=== PATIENT | female | born 1940 | race Caucasian/White ===

== ENCOUNTER 2017-06-07 20:18 | Inpatient (IN) | payer OTHER, MEDICARE ==
[~2017-06-07] VITALS: Ht 162.6 cm; Wt 47.7 kg
--- NOTE | 2017-06-07 20:46 | ED DYSPNEA/ASTHMA COMPLAINT ---
History of Present Illness General Chief Complaint: Chest Pain Stated Complaint: CHEST PAIN, SOB, FEET SWELLING PER PT Source: patient, family Exam Limitations: no limitations Vital Signs & Intake/Output Vital Signs & Intake/Output Vital Signs Date Time Temp Pulse Resp B/P B/P Pulse O2 O2 Flow FiO2 Mean Ox Delivery Rate 06/079 97.9 81 20 154/94 92 Nasal 3.0L Cannula 06/078 97.5 99 18 150/80 93 Nasal 3.0L Cannula 06/07 2100 88 Nasal 4.0L Cannula 06/07 2032 93.1 85 18 152/95 82 Room Air ED Intake and Output 06/08 0000 06/07 1200 Intake Total 1300 Output Total Balance 1300 Intake, IV 1300 Patient 99 lb 0.01 oz Weight Weight Reported by Patient Measurement Method Allergies Coded Allergies: Cephalosporins (Severe, HIVES, SWELLINGS ALL OVER BODY 06/07/17) acetaminophen (From PERCOCET) (Severe, HIVES, SWELLINGS ALL OVER BODY 06/07/17) aspirin (From PERCODAN) (Severe, HIVES, SWELLINGS ALL OVER BODY 06/07/17) ciprofloxacin (From CIPRO) (Severe, HIVES, SWELLINGS ALL OVER BODY 06/07/17) meperidine (From DEMEROL) (Severe, HIVES, SWELLING ALL OVER BODY 06/07/17) oxycodone (Severe, HIVES, SWELLINGS ALL OVER 06/07/17) Triage Note: TRIAGE: PATIENT TO ER FROM HOME [id number], STATES "CAN'T BREATHE RIGHT, SO WEAK FEEL LIKE I'M GOING TO DROP. DRY COUGH, NO CP RIGHT NOW. I WANT TO BE AT [facility]." PATIENT FAMILY REPORTS X 1 MONTH HAVING POOR APPETITE, CAN'T GO UP MORE THAN 2-3 STAIRS. PATIENT REPORTS "FEEL LIKE I'M DRUNK BUT I DON'T DRINK." ALERT AND ORIENTED X3. INC WOB NOTED, SKIN WEAVER/ PALE. BILATERAL LOWER EXT PITTING EDEMA NOTED. EKG OBTAINED. Triage Nurses Notes Reviewed? yes HPI: Patient presents to the hospital increased breath and dyspnea on exertion worsening over the past month. Patient has seen a biological scientist and is beginning to get a workup for this and she is scheduled to see a cotton weigher for the first time on Wednesday. Patient is an active smoker however she is attempting to quit. Patient denies any chest pain or chest tightness. She has a dry nonproductive cough. There are no fevers or chills. Patient chronically sleeps on 2 pillows. Patient states she gets short of breath walking mcc across the room and she has to stop to catch her breath. Past History Travel History Traveled to [place] past 21 day No Medical History Any Pertinent Medical History? 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 No Review of Systems Review of Systems Constitutional: Reports: no symptoms. EENTM: Reports: no symptoms. Respiratory: Reports: see HPI, cough, short of breath, wheezing. Cardiovascular: Reports: no symptoms. GI: Reports: no symptoms. Genitourinary: Reports: no symptoms. Musculoskeletal: Reports: no symptoms. Skin: Reports: no symptoms. Neurological/Psychological: Reports: no symptoms. Hematologic/Endocrine: Reports: no symptoms. Immunologic/Allergic: Reports: no symptoms. All Other Systems: Reviewed and Negative Physical Exam Physical Exam General Appearance: well developed/nourished, alert, awake, anxious, moderate distress Head: atraumatic, normal appearance Eyes: Bilateral: PERRL, EOMI. Ears, Nose, Throat: normal pharynx, normal ENT inspection, hearing grossly normal Neck: normal inspection, supple, full range of motion Respiratory: decreased breath sounds, rhonchi, wheezing, respiratory distress Cardiovascular: normal peripheral pulses, tachycardia Gastrointestinal: normal bowel sounds, soft, non-tender, no organomegaly Extremities: normal inspection, normal capillary refill, normal range of motion, no edema Neurologic/Psych: no motor/sensory deficits, awake, alert, oriented x 3, normal mood/affect Skin: intact, normal color, warm/dry Lymphatic: no anterior cervical alona Core Measures ACS in differential dx? Yes CVA/TIA Diagnosis No Sepsis Present: No Sepsis Focused Exam Completed? No Progress Differential Diagnosis: asthma, AMI, bronchitis, CHF, COPD, pericarditis, pulmonary embolism, pneumonia, pneumothorax Plan of Care: Orders Procedure Date/time Status Heart Healthy Diet 06/08 B Active Add-on Test (ER Only) 06/08 0004 Active ARTERIAL BLOOD GAS (GEN) 06/08 0003 Active LACTIC ACID 06/07 2344 Active ED Holding Orders 06/07 2334 Active Admit to inpatient 06/07 2334 Active Vital Signs 06/07 2334 Active Code Status 06/07 2334 Active GAMMA GLUTAMYL TRANSFERASE 06/07 2047 Active BLOOD CULTURE 06/07 2044 Active URINALYSIS 06/07 2044 Active LACTIC ACID 06/07 2044 Complete Telemetry/Belting Cutter 06/07 2039 Active TROPONIN LEVEL 06/07 2039 Active PROTHROMBIN TIME 06/07 2039 Complete MAGNESIUM 06/07 2039 Active COMPREHENSIVE METABOLIC PANEL 06/07 2039 Active CBC WITHOUT DIFFERENTIAL 06/07 2039 Complete B-TYPE NATRIURETIC PEP (BNP) 06/07 2039 Active EKG 06/07 2020 Active Laboratory Tests 06/08/17 0015: Lactic Acid Pending 06/07/172047: Lactic Acid 6.6 H 06/07/172047: Anion Gap 19 H, Estimated GFR 48 L, BUN/Creatinine Ratio 21.8, Glucose 121 H, Calcium 8.9, Magnesium 1.7, Total Bilirubin 0.7, GGT Pending, AST 32, ALT 34, Alkaline Phosphatase 137 H, Troponin I 0.07, [id number] Pept 05967 H, Total Protein 8.3 H, Albumin 3.7, Globulin 4.6 H, Albumin/Globulin Ratio 0.8 L, PT 11.6, INR 1.11, CBC w Diff NO MAN DIFF REQ, RBC 5.13, MCV 91.9, MCH 30.2, RDW 15.9 H, MPV 7.2 L, Gran % 88.3 H, Lymphocytes % 7.2 L, Monocytes % 3.9, Eosinophils % 0.3, Basophils % 0.3, Absolute Granulocytes 9.0 H, Absolute Lymphocytes 0.7 L, Absolute Monocytes 0.4, Absolute Eosinophils 0, Absolute Basophils 0, PUBS MCHC 32.8 L Microbiology 06/07 2209 BLOOD: Blood Culture - RECD 06/07 2044 BLOOD: Blood Culture - ORD Diagnostic Imaging: Viewed by Me: Radiology Read. Discussed w/RAD: Radiology Read. Radiology Impression: PATIENT: ISABEL SILVA RECORD NO: [id number] PRESENT AGE: 77 PATIENT ACCOUNT NO: [id number] : 38 LOCATION: [facility] ORDERING PHYSICIAN: Marquez Moreau MD SERVICE DATE: 06/07/17 EXAM TYPE: CAT - CT CHEST W IV CONTRAST EXAMINATION: CT CHEST WITH CONTRAST CLINICAL INFORMATION: Shortness of breath. Follow-up abnormal exam. COMPARISON: Same day chest radiographs. TECHNIQUE: Contiguous axial thin section helical images of the chest were performed following the administration of 95 mL of intravenous Optiray 320. The data set was reformatted in the coronal and sagittal planes and reviewed on an independent workstation. DLP: 166 mGy-cm. FINDINGS: The heart is of normal size. There is no pericardial effusion. There is neither mediastinal, hilar nor axillary lymphadenopathy. There are no chest wall masses. There are moderate bilateral pleural effusions. There is extensive emphysema. There is extensive interlobular septal thickening, particularly within the lower lobes. No discrete mass lesions are demonstrable. The visualized upper abdomen demonstrates that the liver is of normal size and attenuation without focal lesions. Normal adrenal glands are identified. Bone windows: Neither sclerotic nor lytic bone lesions are identified. IMPRESSION: Moderate bilateral pleural effusions. Extensive emphysema. Nonspecific diffuse interlobular septal thickening. DICTATED BY: Robin Brunner MD DATE/TIME DICTATED:06/07/172246 SECOND BUTLER:MARLA DATE/TIME TRANSCRIBED:06/07/172246 CONFIDENTIAL, DO NOT COPY WITHOUT APPROPRIATE AUTHORIZATION. <Electronically signed in Other Vendor System> SIGNED BY: Robin Brunner MD 06/07/172256 CXR Impression: PATIENT: ISABEL SILVA PRESENT AGE: 77 PATIENT ACCOUNT NO: [id number] : 38 LOCATION: [facility] ORDERING PHYSICIAN: Marquez Moreau MD SERVICE DATE: 06/07/17 EXAM TYPE: RAD - XRY-CHEST XRAY, TWO VIEWS EXAMINATION: XR CHEST CLINICAL INFORMATION: Shortness of breath. Hypothermia. COMPARISON: None TECHNIQUE: 2 views of the chest were obtained. FINDINGS: There is coarse extensive interstitial lung markings in both lungs that are likely chronic. There is a focus of pleural density and parenchymal linear scarring at the right upper lobe that could be a mass. There is blunting of both costophrenic angles right greater on left due to bilateral pleural effusions. The heart size is normal. No significant central pulmonary vascular congestion. There are calcifications of aortic arch. IMPRESSION: Chronic interstitial lung disease. Question of right upper lobe mass. Bilateral pleural effusions right greater than left. Consider CT chest with contrast for follow- up. DICTATED BY: Juanito Castro MD DATE/TIME DICTATED:06/07/172105 SECOND BUTLER:MARLA DATE/TIME TRANSCRIBED:06/07/172105 CONFIDENTIAL, DO NOT COPY WITHOUT APPROPRIATE AUTHORIZATION. <Electronically signed in Other Vendor System> SIGNED BY: Juanito Castro MD 06/07/172110 Initial ED EKG: S TACH, NSSTT CHANGES, LATE TRANSITION Prior EKG: unchanged Rhythm Strip: sinus tachycardia Departure Departure Disposition: STILL A PATIENT Condition: Guarded Clinical Impression Primary Impression: COPD exacerbation Secondary Impressions: Fluid overload, Lactic acidosis Departure Forms: Customer Survey General Discharge Information Admission Note Spoke With: Oseas Temple MD Documentation of Exam: Documentation of any treatments & extenuating circumstances including Concerns Regarding Discharge (functional status, medication knowledge or non-compliance, living conditions, etc.) that warrant an admission rather than observation: [ TELE MONITORING, SERIAL ENZYMES, CARDIOLOGY CONSULTATION, PULM CONSULTATION, IV ABX, IV STEROIDS] Critical Care Note Critical Care Note Critical Care Time: mins: (120 MIN)
[2017-06-07 21:02] LABS: ABSOLUTE BASOPHIL COUNT 0 /CUMM (0.0-0.2); ABSOLUTE EOSINOPHIL COUNT 0 /CUMM (0.0-0.7); ABSOLUTE LYMPH COUNT 0.7 /CUMM (1.2-3.4); ABSOLUTE MONOCYTE COUNT 0.4 /CUMM (0.10-0.60); BASOPHIL % 0.3 % (0.0-2.0); EOSINOPHIL % 0.3 % (0-5); GRANULOCYTE % 88.3 % (42.2-75.2); HEMATOCRIT 47.2 % (37-47); MEAN CORPUSCULAR HGB 30.2 PG (27.0-31.0); MEAN CORPUSCULAR HGB CONC 32.8 G/DL (33.0-37.0); MEAN CORPUSCULAR VOLUME 91.9 FL (81.0-99.0); MEAN PLATELET VOLUME 7.2 FL (7.4-10.4); PLATELET COUNT 433 /CUMM (130-400); RBC DISTRIBUTION WIDTH 15.9 % (11.5-14.5); RED BLOOD CELL CT 5.13 /CUMM (4.20-5.40); WHITE BLOOD CELL COUNT 10.2 /CUMM (4.8-10.8)
[2017-06-07 21:03] LABS: PT 11.6 SEC (9.4-12.5)
--- NOTE | 2017-06-07 21:11 | RADIOLOGY REPORT ---
EXAMINATION: XR CHEST CLINICAL INFORMATION: Shortness of breath. Hypothermia. COMPARISON: None TECHNIQUE: 2 views of the chest were obtained. FINDINGS: There is coarse extensive interstitial lung markings in both lungs that are likely chronic. There is a focus of pleural density and parenchymal linear scarring at the right upper lobe that could be a mass. There is blunting of both costophrenic angles right greater on left due to bilateral pleural effusions. The heart size is normal. No significant central pulmonary vascular congestion. There are calcifications of aortic arch. IMPRESSION: Chronic interstitial lung disease. Question of right upper lobe mass. Bilateral pleural effusions right greater than left. Consider CT chest with contrast for follow-up.
--- NOTE | 2017-06-07 22:57 | CT SCAN REPORT ---
EXAMINATION: CT CHEST WITH CONTRAST CLINICAL INFORMATION: Shortness of breath. Follow-up abnormal exam. COMPARISON: Same day chest radiographs. TECHNIQUE: Contiguous axial thin section helical images of the chest were performed following the administration of 95 mL of intravenous Optiray 320. The data set was reformatted in the coronal and sagittal planes and reviewed on an independent workstation. DLP: 166 mGy-cm. FINDINGS: The heart is of normal size. There is no pericardial effusion. There is neither mediastinal, hilar nor axillary lymphadenopathy. There are no chest wall masses. There are moderate bilateral pleural effusions. There is extensive emphysema. There is extensive interlobular septal thickening, particularly within the lower lobes. No discrete mass lesions are demonstrable. The visualized upper abdomen demonstrates that the liver is of normal size and attenuation without focal lesions. Normal adrenal glands are identified. Bone windows: Neither sclerotic nor lytic bone lesions are identified. IMPRESSION: Moderate bilateral pleural effusions. Extensive emphysema. Nonspecific diffuse interlobular septal thickening.
--- NOTE | 2017-06-07 23:47 | History & Physical ---
Ariela Pires MD 06/07/17 0826: General Information and HPI MD Statement: I have seen and personally examined MARY SILVA and documented this H&P. The patient is a 77 year old F who presented with a patient stated chief complaint of [shortness breath]. Source of Information: patient, family Exam Limitations: poor historian History of Present Illness: Patient is a 77-year-old female with approximately a 64 pack year smoking history who recently quits smoking approximately 3 weeks prior to this admission with past medical history of CVA in 2002, hypertension, urinary incontinence, anxiety, recently seen by a meat passer at [facility] for possible heart failure and currently treated for presumed COPD recently placed on inhalers and is scheduled to see a parts advisor this week. Patient presents with shortness of breath which she states has worsened over the past few months. Patient states that around she had an acute episode of shortness of breath for which she did not seek medical attention. States that 2 weeks before she had another acute episode of shortness of breath lasting approximately 15 minutes while placing perez around the veiling of the stairs. Patient states that at that time she had to sit down to catch her breath. Patient states that the shortness of breath has gotten worse over the last 1 month where she is unable to walk more than 2-3 stairs. Patient endorses intermittent chest pain with shortness of breath. Endorses dizziness, palpitations, spinning of the room. Patient and her son state that they noticed her feet were swollen today and had a black/blue discoloration which improved after IV fluids in the ED. Patient states that she has also been feeling weak over the past few months. Endorses orthopnea. Patient states that she is not longer able to drive or go shopping due to the shortness of breath and weakness. Review of systems: Patient endorses some vague abdominal pain, denies nausea/ vomiting/constipation/diarrhea, endorses anorexia. Past medical history: As above, lactose intolerance Past surgical history: hysterectomy Social history: Smoking since the age of 13 approximately 1 pack per day, quit smoking 2-3 weeks prior to this admission, denies alcohol or illicit drug use, lives with son and [id number]. Family history: Father at the age of 87 after suffering [place], mother at the age of 55 due to stroke, daughter recently from Fanconi syndrome Allergies: Patient has allergies to cephalosporin, acetaminophen, oxycodone, aspirin, ciprofloxacin, Demerol. She gets hives with all of these medications. Medications: Patient is currently on lisinopril 30 mg, Lipitor 10 mg, Macrobid 180 mg, Myrbetriq 50 mg, Premarin 0.3 mg, vitamin D and E supplements On admission: Vitals: MAXIMUM TEMPERATURE of 97.9 initially 93.1 on arrival, heart rate: 81-99 , respiration rate: 18-20, blood pressure: 154/94, pulse ox initially 82% on room air went up to 92% on 3 L Allergies/Medications Allergies: Coded Allergies: Cephalosporins (Severe, HIVES, SWELLINGS ALL OVER BODY 06/07/17) acetaminophen (From PERCOCET) (Severe, HIVES, SWELLINGS ALL OVER BODY 06/07/17) aspirin (From PERCODAN) (Severe, HIVES, SWELLINGS ALL OVER BODY 06/07/17) ciprofloxacin (From CIPRO) (Severe, HIVES, SWELLINGS ALL OVER BODY 06/07/17) meperidine (From DEMEROL) (Severe, HIVES, SWELLING ALL OVER BODY 06/07/17) oxycodone (Severe, HIVES, SWELLINGS ALL OVER 06/07/17) Past History Travel History Traveled to [place] past 21 day No Medical History Neurological: CVA EENT: NONE Cardiovascular: hypertension Respiratory: NONE Gastrointestinal: NONE Hepatic: NONE Renal: urinary incontinence Musculoskeletal: NONE Psychiatric: anxiety Endocrine: NONE Blood Disorders: NONE Cancer(s): NONE HUMAN RESOURCES CONSULTANT/Reproductive: NONE Surgical History Surgical History: non-contributory Past Family/Social History Psychosocial History ETOH Use: denies use Illicit Drug Use: denies illicit drug use Review of Systems Review of Systems Constitutional: Reports: see HPI, weakness. Cardiovascular: Reports: see HPI, chest pain. Respiratory: Reports: see HPI, cough, orthopnea, short of breath. GI: Reports: no symptoms. Genitourinary: Reports: see HPI. Musculoskeletal: Reports: no symptoms. Skin: Reports: no symptoms. Exam & Diagnostic Data Last 24 Hrs of Vital Signs/I&O Vital Signs Date Time Temp Pulse Resp B/P B/P Pulse O2 O2 Flow FiO2 Mean Ox Delivery Rate 06/08 0500 97.6 80 18 158/86 96 Nasal 3.0L Cannula 06/08 0244 97.9 82 22 155/85 95 Nasal 3.0L Cannula 06/07 2329 97.9 81 20 154/94 92 Nasal 3.0L Cannula 06/078 97.5 99 18 150/80 93 Nasal 3.0L Cannula 06/07 2100 88 Nasal 4.0L Cannula 06/07 2032 93.1 85 18 152/95 82 Room Air Intake & Output 06/08 0800 06/08 0000 06/07 1600 Intake Total 250 1300 Output Total Balance 250 1300 Intake, IV 250 1300 Patient 99 lb 0.01 oz Weight Weight Reported by Patient Measurement Method Physical Exam General Appearance Alert, Oriented X3, Cooperative, No Acute Distress Skin No Rashes Skin Temp/Moisture Exam: Warm/Dry HEENT Atraumatic, PERRLA, EOMI, Mucous Membr. moist/pink Cardiovascular Regular Rate, Normal S1, Normal S2, No Murmurs Lungs left sided basilar crackles, right base decreased breath sounds, remainder clear to auscultation Abdomen Normal Bowel Sounds, Soft, No Tenderness Extremities No Clubbing, No Cyanosis, Normal Pulses, No Tenderness/Swelling, 2+ pitting edema bilaterally up to ankles Last 24 Hrs of Labs/Obdulio: Laboratory Tests 06/08/17 0445: Troponin I 0.06 06/08/17 0240: Urinalysis LIGHT H, Urine Color YEL, Urine Clarity HAZY H, Urine pH 6.0, Ur Specific [place] 1.020, Urine Protein 100 H, Urine Ketones NEG, Urine Nitrite NEG, Urine Bilirubin NEG, Urine Urobilinogen 1.0, Ur Leukocyte Esterase NEG, Ur Microscopic SEDIMENT EXAMINED, Urine RBC 5-10 H, Urine WBC 1-3 H, Ur Epithelial Cells PACKD H, Urine Bacteria FEW H, Urine Mucus FEW, Urine Hemoglobin SMALL H, Urine Glucose NEG 06/08/17 0219: Urine Color Cancelled, Urine Clarity Cancelled, Urine pH Cancelled, Ur Specific [place] Cancelled, Urine Protein Cancelled, Urine Ketones Cancelled, Urine Nitrite Cancelled, Urine Bilirubin Cancelled, Urine Urobilinogen Cancelled, Ur Leukocyte Esterase Cancelled, Ur Microscopic Cancelled, Urine Hemoglobin Cancelled, Urine Glucose Cancelled 06/08/17 0015: Lactic Acid 3.2 H 06/07/172047: Lactic Acid 6.6 H 06/07/172047: Anion Gap 19 H, Estimated GFR 48 L, BUN/Creatinine Ratio 21.8, Glucose 121 H, Calcium 8.9, Magnesium 1.7, Total Bilirubin 0.7, GGT 61 H, AST 32, ALT 34, Alkaline Phosphatase 137 H, Troponin I 0.07, Olq-E-Enwaqzxmiof Pept 61025 H, Total Protein 8.3 H, Albumin 3.7, Globulin 4.6 H, Albumin/Globulin Ratio 0.8 L, PT 11.6, INR 1.11, CBC w Diff NO MAN DIFF REQ, RBC 5.13, MCV 91.9, MCH 30.2, RDW 15.9 H, MPV 7.2 L, Gran % 88.3 H, Lymphocytes % 7.2 L, Monocytes % 3.9, Eosinophils % 0.3, Basophils % 0.3, Absolute Granulocytes 9.0 H, Absolute Lymphocytes 0.7 L, Absolute Monocytes 0.4, Absolute Eosinophils 0, Absolute Basophils 0, PUBS MCHC 32.8 L Microbiology 06/08 239 URINE ROUT: Urine Culture - RECD 06/07 2209 BLOOD: Blood Culture - RECD 06/07 2044 BLOOD: Blood Culture - CAN Cancelled: CANCELLED PER [facility] Diagnostic Data EKG Results Normal sinus at a rate of 81, normal axis, no ST or T-wave changes, probable right ventricular hypertrophy with V5 R/S ratio of < 1.0, QTC: 414 CXR Results Chronic interstitial lung disease, questionable right upper lobe mass, bilateral pleural effusions right greater than Other Results CT chest showing moderate bilateral pleural effusions, extensive emphysema, diffuse intralobular septal thickening Assessment/Plan Assessment: Patient is a 77-year-old female with approximately a 64 pack year smoking history who recently quits smoking approximately 3 weeks prior to this admission with past medical history of CVA in 2002, hypertension, urinary incontinence, anxiety, recently seen by a meat passer at [facility] for possible heart failure and currently treated for presumed COPD recently placed on inhalers and is scheduled to see a parts advisor this week presenting this admission with acute hypoxic respiratory failure requiring 3 L of oxygen. Patient will be admitted to the telemetry floor for management of followin. Acute hypoxic respiratory failure likely secondary to Emphysema, Interstitial Lung Disease, and Cor Pulmonale. Patient has an extensive smoking history and recently weeks prior to this admission. Patient has had multiple episodes of dyspnea with worsening dyspnea on exertion and orthopnea. Patient is not on oxygen at home however is currently requiring 3 L of oxygen with increased work of breathing on examination. Patient has been on macrobid for many years (per patient) a known cause of pulmonary fibrosis. CT scan showed bilateral pleural effusion and extensive emphysema with septal bronchial thickening. Patient has received IV Solumedrol 125mg, Azithromycin and DuoNeb treatment. - continue oxygen supplementation - continue IV solumedrol 40mg q8h - continue IV azithromycin - continue TRC and DuoNeb tx - obtain an ABG - consult Pulm in AM - obtain results of ECHO from her meat passer - discontinue macrobid 2. Atypical chest pain: Patient is having pain that is left sided accompanying her shortness of breath. Due to her acute decompensation will rule out ACS as possible cause of patients current symptoms. - first trop and EKG wnl - serial EKG and trop - obtain ECHO results and reports from her meat passer at [facility] - cardiology consult today - continue lipitor 3. High Anion Gap Metabolic Acidosis - with lactic acid on admission of 6.6. Likely this is secondary to dehydration from poor intake and respiratory distress. Patient has already received 2 bags of IV fluids. - discontinue IV fluids at this tiem - will continute trending lactate 4. History of HTN - lisinopril held, reassess in the AM 5. Urinary Incontinence - continue myrbetriq 50mg - hold macrobid DVT PPx: Heparin SC Code: DNR/DNI Diet: Heart Healthy As Ranked By This Provider Problem List: 1. Acute respiratory failure with hypoxia 2. COPD exacerbation 3. High anion gap metabolic acidosis 4. Lactic acidosis 5. Chest pain Core Measures/Misc (02/14) Acute Coronary Syndrome ACS Diagnosis: No Congestive Heart Failure Congestive Heart Failure Diagnosis No Cerebrovascular Accident CVA/TIA Diagnosis: No VTE (View Protocol) VTE Risk Factors Age>40 No Mechanical VTE Prophylaxis d/t N/A MechProphylax Ordered No VTE Pharm Prophylaxis d/t NA PharmProphylax ordered Sepsis (View protocol) Sepsis Present: No Danay Souza 06/08/17 0353: General Information and HPI Allergies/Medications Home Med list Albuterol Sulfate (Proventil Hfa) 90 MCG HFA.AER.AD 2 PUF INH Q4 copd ( Reported) Diazepam 5 MG TABLET 1 TAB PO QPM PRN insomnia (Reported) Lisinopril 30 MG TABLET 1 TAB PO DAILY HTN (Reported) Mirabegron (Myrbetriq) 50 MG TAB.ER.24H 1 TAB PO DAILY bladder spasm ( Reported) Nitrofurantoin Monohyd/M-Cryst (Nitrofurantoin Rusk-Mcr 100 MG) 100 MG CAPSULE 1 CAP PO BID uti (Reported) Resident Review Statement Other Findings: Mary Silva is a 77-year-old woman brought into the emergency room by her family due to worsening shortness of breath and failure to thrive. Past medical history: Stroke in 2002 without neurologic sequela, hypertension, recurrent urinary tract infection on lifetime suppression with nitrofurantoin, urinary incontinence and bladder spasm, COPD. She recently became and moved in with with his son and daughter in law. She has been a heavy lifetime smoker (60 pack per day) and for the past couple years has had stable dry coughs without any shortness of breath on daily sputum production. About one month ago (around today) patient was seen on occasion by her family members in distressed and short of breath, while struggling to maintain the same amounts of physical activity that she was doing 6 months ago. Moving forward, dealing with shortness of breath, patient decided to start cutting back on her smoking and visited her primary care physician who started her on albuterol inhaler. Cording to patient and her family her shortness of breath and gradually declining exercise tolerance progressed. Shortness of breath which to the point that severely restricted her daily physical activities (patient gave up on driving and shopping). According to patient doing minimal physical activity for example walking to bathroom, change in close, and walking 2 or 3 flights of stairs make her severely short of breath. On the night of admission patient was particularly short of breath at home and son also noticed (new) bilateral lower extremities edema and bluish discoloration of her toes. She uses 2 pillows for sleeping but recently for the past month noticed that lying flat in bed becoming progressively more difficult for her. Patient denies any increase in abdominal girth, not sure about weight gain, but mentions right upper quadrant vague discomfort and early satiety with eating for the past month. Patient denies any chest pain, palpitation, feeling sweaty and clammy, , nausea, vomiting, diarrhea symptoms, travel and sick contacts, worsening of her baseline cough, no sputum production, fever and shaking chills. 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 Review of system: Complains of fatigue, lower extremity edema and anxiety. Vital signs : Initially in the emergency room was hypoxic and to 82% in room air and was restarted on 4 L of oxygen nasal cannula which was later on titrated per O2 saturation remained stable on 3 L of oxygen nasal cannula at 92%; temperature 93.1, pulse rate 85, respiratory rate 18, blood pressure 152/95 mmhg. Physical exam: Head and neck: Mucous membranes are dry no JVD is present; heart: S1-S2, no S3 gallop, no murmur; lungs: No wheezing, inspiratory crackle right lung base and bi basilar decreased air entry. Abdomen: Soft, hepato-jugular: Negative; extremities: 2+ pedal pitting edema, +2 peripheral pulses. Pertinent data Chest x-ray: Bilateral pleural effusions right greater than left. Chest CT scan without IV contrast: I personally reviewed the pictures in my attending; Moderate dependent, nonloculated, bilateral pleural effusions, R> L. Extensive emphysema. honeycombing changes on both bases more predominant on the right side; Nonspecific diffuse interlobular septal thickening. WBC 10.2; H&H: 15.5/47.2; platelets 433 Sodium 148, potassium 3.2, chloride 111, anion gap 19, BUN 24, creatinine 1.1, alkaline phosphatase 137 GGT magnesium 1.7 phosphorus ProBNP 10,700 Anion gap 19, lactic acid 6.6 >> 3.2 List of active problems #1 acute hypoxic respiratory failure #2 AGMA #3 YUMIKO #4 benzodiazepine dependence #5 elevated alkaline phosphatase and GGT Discussion Patient's complaint of progressive fatigue, worsening shortness of breath, and declining exercise tolerance is mostly related to combination of right-sided heart failure ( evident by elevated proBNP and bilateral pleural effusion, orthopnea, and peripheral edema) in a setting of ILD in advance COPD. In addition to her outstanding history of smoking, patient was on lifetime suppression therapy with nitrofurantoin for her recurrent UTI which in turn could be the cause or an important contributing factor in development of DPLD. Patient has multiple risk factor for AZ, we will trend troponin and EKG to rule out ACS. AGMA 2/2 to lactic acidosis without any obvious source of infection. He received Azithromycin and clinda in the ED ( for possible COPD), but we do not think that she has COPD flare to begin with. For now we will keep off Abx and follow cultures. The other possibility for lactic acidosis is hypoxia and anaerobic metabolism ( that she had). For now the acidosis is responding well. We will get and ABG as well. In the emergency room patient received 300 ML bolus of NLSL. No hydration and repeat The A.M. and continue antihypertensive medication in the a.m. Plab * Admit to telemetry for continuous cardiac monitoring * Strict ins and outs and daily weight * Heart healthy diet which fluid restriction 1800 ml * Watch off antibiotics * Echo in the morning * stop nitofurantoin and pulmonology consult in the morning * Cardiology consult in the a.m. * Trending troponin and EKG at 3 AM * TRC/NEB * O2 set up and titrate per respiratory protocol; target O2 sat 90% * resume 30 mg lisinopril in the am * Patient has access to her home medication and despite medical staff frequent requests continues to taking extra doses of diazepam. Lovenox 40 units subcutaneous daily Housekeeping orders DNR/DNI Attending MD Review Statement Attending Statement Attending MD Statement: examined this patient, discuss w/resident/PA/MARKETING COORDINATOR, agreed w/resident/PA/MARKETING COORDINATOR, discussed with family, reviewed EMR data (avail), discussed with nursing, discussed with case mgmt, reviewed images, amended to note Oseas Temple 06/08/17 0454: Attending MD Review Statement Attending Statement Attending MD Statement: examined this patient, discuss w/resident/PA/MARKETING COORDINATOR, agreed w/resident/PA/MARKETING COORDINATOR, reviewed EMR data (avail), reviewed images, amended to note Attending Assessment/Plan: CC: Chest pain, shortness of breath PMH: Severe anxiety, HTN, history of CVA, urinary incontinence/urge Patient is a poor historian, there is a lot of argument between patient and patient's family to provide history. When I spoke to patient alone she states that she does not share a lot of things with patient's son as he is going through his own problems. Since last 1 month patient noticed worsening of breathing, mostly dyspnea on exertion, she could not go up 1 flight of stairs, it gradually worsened over month duration and now she cannot walk 2 steps without getting short of breath. She quit smoking 3 months back after some 65 year of smoking 1 pack per day, and has been noticing cough with brown colored sputum production since then. Patient saw her primary care physician who started her on "puffers" which she has been using and she was also referred to cardiology, they did some investigations that she is not aware of and meat passer mentioned that it is basically a lung problem and she needs to see a parts advisor, she is yet to see a parts advisor. All this while patient started gradually noticing bilateral lower extremity swelling, decreased appetite. Today her breathing got worse to the extent that she was almost going to pass out but she did not lose her consciousness instead, she dropped on a bed. she noticed left sided chest pain which was nonradiating, lasted for a very brief time, resolved without any treatment. Vitals: Tmin 93.1, Max 97.9, pulse in 80s, RR 18, blood pressure 152/95, saturating 82% on room air on arrival, improved to 93% on 4 L. On exam: A O 3, cooperative, moderate respiratory distress, pursing of lips, accessory muscles in use, neck supple, JVD normal, no lymphadenopathy, mucosa dry, no focal neurological deficit, bilateral lower extremity edema, no obvious skin rashes or inflammation CVS: S1-S2, RRR. RS: Markedly decreased air entry, no obvious wheezing, dry inspiratory crackles on left base, decreased air entry on right base of lung. Abdomen: Soft, NT, ND, bowel sounds present. Labs: WBC 10.5, hemoglobin 15.5, hematocrit 47.2, platelet 433, neutrophils 88%, sodium 148, potassium 3.2, chloride 111, bicarbonate 19, BUN 24, creatinine 1.1, anion gap 19, glucose 121, calcium 8.9, lactic acid 6.6, LFT unremarkable except alkaline phosphatase 137, troponin 0.07, proBNP 52050, total protein 8.3, albumin 3.7, INR 1.11, ECG: Multiple PACs CXR: Chronic interstitial lung disease. Question of right upper lobe mass. Bilateral pleural effusions right greater than left. Consider CT chest with contrast for follow-up. CT chest: Moderate bilateral pleural effusions. Extensive emphysema. Nonspecific diffuse interlobular septal thickening. Assessment and plan 77 year old female without any formal diagnosis of COPD, history of hypertension , CVA, incontinence and anxiety presented in ER for an episode of transient chest pain which is resolved without treatment, nonradiating. But her symptoms go back up to a month or more, she has been noticing dyspnea on exertion, worsening progressively (see HPI), lately developing bilateral lower extremity swelling, visited cardiology 2 weeks back and was suggested to see parts advisor. She was also started on Symbicort and albuterol since month or so. Patient did not have any actual loss of consciousness but almost felt very dizzy, she was significantly hypoxic at arrival in ER, very thin built, anxious, moderate respiratory distress, pursing of lips, accessory muscles in use, neck supple, JVD normal,Markedly decreased air entry, no obvious wheezing, dry inspiratory crackles on left base, decreased air entry on right base of lung, and bilateral lower extremity edema. She is found to have troponin 0.07, proBNP 10,700, lactic acidosis causing a non-gap metabolic acidosis. CT scan suggestive of extensive emphysema, bilateral pleural effusion and interlobular septal thickening. It appears that patient has a severe emphysema/COPD causing cor pulmonale, at the same time she also has risk factors for coronary artery disease ACS and left-sided heart failure should be ruled out. I think lactic acidosis is secondary to dehydration and significant hypoxia, patient received 2 L normal saline in ER already. Patient is a very anxious personality, she was given 10 mg of diazepam in ER and then she took 5 mg of pill extra from her purse when I was in the room and she was so quick that I could not stop her. Patient refuses to take the purse away from her. In the conversation she kept telling that she wants to see her own meat passer and would want to go to [facility] instead of coming here. we explained her about seeing on- call meat passer here and she can follow-up with her own meat passer outpatient. She agrees to this plan. (SIRS positive with lactic acidosis but no source of infection) + COPD exacerbation + Chest pain rule out acute coronary syndrome + Cor pulmonale with that without left-sided heart failure + Acute hypoxic respiratory failure secondary to COPD - Admit to telemetry - Continuous telemetry monitoring - Continue O2 by nasal cannula, try to gradually taper - Obtain ABG - Hold use of Lasix for now - DC IV fluids - Strict I's and O's - Daily weights - Serial troponin and EKGs - 2-D echo in a.m. - UA urine cultures - 2 sets of blood cultures - Trend lactic acid - IV methylprednisolone 40 mg every 8 hours - IV azithromycin - TRC nebulization with albuterol and ipratropium scheduled and when necessary - Mucinex scheduled twice a day - Continue rest of the home medications - Adequate pain control - DVT prophylaxis - Pulmonology consult in a.m. - Patient insists on continuing mirabegron and MicroBid (they will have to dilate to me if you don't do it) -On the medication claim history patient is on Cardizem, but patient's list does not show it, need to confirm in the morning.
[2017-06-08] MEDS ORDERED: DIAZEPAM5 M1 PO (02:13)
[2017-06-08] MEDS ORDERED: MYRBETRIQ50 M1 PO (02:14)
[2017-06-08] MEDS ORDERED: NITROFURANTOIN100 M6 PO (02:14)
[2017-06-08] MEDS ORDERED: PROVENTIL HFA6.7 GM INH (02:14)
[2017-06-08] MEDS ORDERED: LISINOPRIL30 M1 PO (02:14)
--- NOTE | 2017-06-08 04:59 | Admission Certification ---
Admission Certification Certification Statement - As attending physician, I certify that at the time of - admission, based on clinical presentation, severity of - symptoms, need for further diagnostic testing and - therapeutic interventions, and risk of adverse outcomes - without in-hospital treatment, in my clinical assessment, - this patient requires an acute hospital stay for a minimum - of two nights or longer. I have also considered psychsocial - factors such as support system, advanced age, financial - issues, cognitive issues, and failed out-patient treatments, - past re-admission history, safety of patient, and lack of - compliance as applicable. Specific rationale supporting this admission is: acute hypoxic respiratory failure secondary to suspected COPD exacerbation, new onset cor pulmonale Vs heart failure
[2017-06-08 08:01] LABS: ABSOLUTE BASOPHIL COUNT 0 /CUMM (0.0-0.2); ABSOLUTE EOSINOPHIL COUNT 0 /CUMM (0.0-0.7); ABSOLUTE LYMPH COUNT 0.3 /CUMM (1.2-3.4); ABSOLUTE MONOCYTE COUNT 0 /CUMM (0.10-0.60); EOSINOPHIL % 0 % (0-5); MEAN PLATELET VOLUME 7.4 FL (7.4-10.4)
[2017-06-08 08:29] LABS: ABSOLUTE GRANULOCYTE CT 5.9 /CUMM (1.4-6.5); BASOPHIL % 0 % (0.0-2.0); MEAN CORPUSCULAR HGB 30.1 PG (27.0-31.0); MEAN CORPUSCULAR HGB CONC 32.9 G/DL (33.0-37.0); MEAN CORPUSCULAR VOLUME 91.7 FL (81.0-99.0); PLATELET COUNT 319 /CUMM (130-400); RBC DISTRIBUTION WIDTH 15.5 % (11.5-14.5); RED BLOOD CELL CT 4.21 /CUMM (4.20-5.40); WHITE BLOOD CELL COUNT 6.3 /CUMM (4.8-10.8)
[2017-06-08 08:50] LABS: HEMATOCRIT 38.6 % (37-47)
[2017-06-08 09:00] LABS: GRANULOCYTE % 94.5 % (42.2-75.2)
--- NOTE | 2017-06-08 10:49 | Cons- Pulmonary ---
General Information and HPI Consulting Request Date of Consult: 06/08/17 Requested By: Medical team Reason for Consult: dyspnea Source of Information: patient Exam Limitations: no limitations History of Present Illness: 77 year old woman from [place]. Most of her care is within the [facility] system. She has a PCP and director weights and measures out of [facility]. Her records are unavailable during examination. She has a signficant smoking hx since age 13, quit a few months ago. She has previously been on oxygen and recently prescribed Symbicort without an official dx of COPD. She also has a cardiac history per patient but that information is unavailable as of yet, it will be requested. She had an "abnormal EKG", she also had an ECHO a few weeks back. She came to ER with dyspnea, leg edmea. Improved in ER, she also received 2L NS. She feels better today, but legs remain swollen and lung exam reveals crackles. She has bilateral effusions, and a significantly elevated BNP. Images and labs were all reviewed and in chart. Allergies/Medications Allergies: Coded Allergies: Cephalosporins (Severe, HIVES, SWELLINGS ALL OVER BODY 06/07/17) acetaminophen (From PERCOCET) (Severe, HIVES, SWELLINGS ALL OVER BODY 06/07/17) aspirin (From PERCODAN) (Severe, HIVES, SWELLINGS ALL OVER BODY 06/07/17) ciprofloxacin (From CIPRO) (Severe, HIVES, SWELLINGS ALL OVER BODY 06/07/17) meperidine (From DEMEROL) (Severe, HIVES, SWELLING ALL OVER BODY 06/07/17) oxycodone (Severe, HIVES, SWELLINGS ALL OVER 06/07/17) Home Med List: Albuterol Sulfate (Proventil Hfa) 90 MCG HFA.AER.AD 2 PUF INH Q4 copd ( Reported) Diazepam 5 MG TABLET 1 TAB PO QPM PRN insomnia (Reported) Lisinopril 30 MG TABLET 1 TAB PO DAILY HTN (Reported) Mirabegron (Myrbetriq) 50 MG TAB.ER.24H 1 TAB PO DAILY bladder spasm ( Reported) Nitrofurantoin Monohyd/M-Cryst (Nitrofurantoin Pine-Mcr 100 MG) 100 MG CAPSULE 1 CAP PO BID uti (Reported) Current Medications: Current Medications Sig/Gila Start time Last Medication Dose Route Stop Time Status Admin Albuterol Sulfate 2 PUF Q4 06/08 0600 AC 06/08 INH 0629 Albuterol Sulfate 3 ML ONCE ONE 06/07 2044 DC 06/07 INH 06/07 Azithromycin 500 MG Q24H 06/08 2330 AC Dextrose/Water 250 ML IV Azithromycin 500 MG DAILY 06/08 1000 DC Sodium Chloride 250 ML IV Azithromycin 500 MG ONCE ONE 06/075 DC 06/07 Dextrose/Water 250 ML IV 06/07 2344 2328 Azithromycin 500 MG ONCE ONE 06/07 2144 DC 06/07 Sodium Chloride 250 ML IV 06/07 224 2349 Clindamycin 600 MG ONCE ONE 06/07 2144 DC 06/07 Dextrose/Water 50 ML IV 06/07 2214 2243 Diazepam 5 MG QPM 06/08 2200 AC PO Diazepam 0 .STK-MED ONE 06/08 0221 DC PO Diazepam 10 MG ONCE ONE 06/08 0215 DC 06/08 PO 06/08 0216 0247 Diazepam 5 MG QPM PRN 06/08 0215 DC PO Enoxaparin Sodium 40 MG DAILY 06/08 1000 DC SC Enoxaparin Sodium 30 MG DAILY 06/08 1000 AC SC Ipratropium [place] 2.5 ML Q4 HRS NEEDED PRN 06/08 0230 AC INH Ipratropium [place] 2.5 ML ONCE ONE 06/07 2044 DC 06/07 INH 06/07 Lisinopril 30 MG DAILY 06/08 1000 AC PO Methylprednisolone 40 MG BID 06/08 2200 AC IV Methylprednisolone 40 MG Q8 06/08 1400 DC IV Methylprednisolone 0 .STK-MED ONE 06/074 DC .ROUTE Methylprednisolone 125 MG ONCE ONE 06/07 2044 DC 06/07 IV 06/07 2045 214 Mirabegron 50 MG DAILY 06/08 1000 AC PO Potassium Chloride 0 .STK-MED ONE 06/07 2254 DC PO Potassium Chloride 40 MEQ ONCE ONE 06/07 2244 DC 06/07 PO 06/076 2259 Sodium Chloride 1,000 ML Q13H 06/08 0430 AC 06/08 IV 0453 Sodium Chloride 1,000 ML BOLUS ONE 06/07 2144 DC 06/07 IV 06/07 2243 2144 Sodium Chloride 1,000 ML BOLUS ONE 06/07 2144 DC 06/07 IV 06/07 224 2328 Sodium Chloride 1,000 ML BOLUS ONE 06/07 2145 DC IV 06/07 2244 Review of Systems Comments 18 point review of systems was performed and reviewed. Please see pertinent positives and pertinent negatives in the HPI. Otherwise ROS is negative. Past History Travel History Traveled to [place] past 21 day No Medical History Neurological: CVA EENT: NONE Cardiovascular: hypertension Respiratory: NONE Gastrointestinal: NONE Hepatic: NONE Renal: urinary incontinence Musculoskeletal: NONE Psychiatric: anxiety Endocrine: NONE Blood Disorders: NONE Cancer(s): NONE SOFTWARE CLIENT ARCHITECT/Reproductive: NONE Surgical History Surgical History: non-contributory Psychosocial History ETOH Use: denies use Illicit Drug Use: denies illicit drug use Exam & Diagnostic Data Last 24 Hrs of Vital Signs/I&O Vital Signs Date Time Temp Pulse Resp B/P B/P Pulse O2 O2 Flow FiO2 Mean Ox Delivery Rate 06/08 1043 146/73 06/08 0845 97.6 85 22 173/91 92 Nasal 2.0L Cannula 06/08 0630 98.0 80 20 149/99 96 Nasal 3.0L Cannula 06/08 0500 97.6 80 18 158/86 96 Nasal 3.0L Cannula 06/08 0244 97.9 82 22 155/85 95 Nasal 3.0L Cannula 06/07 2329 97.9 81 20 154/94 92 Nasal 3.0L Cannula 06/07 2218 97.5 99 18 150/80 93 Nasal 3.0L Cannula 06/07 2100 88 Nasal 4.0L Cannula 06/07 2033 93.1 85 18 152/95 82 Room Air Intake & Output 06/08 1600 06/08 0800 06/08 0000 Intake Total 250 1300 Output Total 300 Balance -50 1300 Intake, IV 250 1300 Output, Urine 300 Patient 99 lb 0.01 oz Weight Weight Reported by Patient Measurement Method Physical Exam Other Physical Findings: Generally - Awake, alert and comfortable without distress Head and neck - normocephalic, atraumatic, EOMI grossly intact Cardiovascular - S1, S2 Lungs - bilateral crackles Abdomen - Bowel sounds positive, soft, non-tender Extremities - bilater edema Last 48 Hrs of Labs/Obdulio: Laboratory Tests 06/08/17 0930: Lactic Acid 2.0 06/08/17 0615: Lactic Acid 2.4 H 06/08/17 0615: Anion Gap 13, Estimated GFR > 60, BUN/Creatinine Ratio 27.8 H, CBC w Diff NO MAN DIFF REQ, RBC 4.21, MCV 91.7, MCH 30.1, RDW 15.5 H, MPV 7.4, Gran % 94.5 H , Lymphocytes % 5.3 L, Monocytes % 0.2 L, Eosinophils % 0, Basophils % 0, Absolute Granulocytes 5.9, Absolute Lymphocytes 0.3 L, Absolute Monocytes 0 L, Absolute Eosinophils 0, Absolute Basophils 0, PUBS MCHC 32.9 L 06/08/17 0445: Troponin I 0.06 06/08/17 0240: Urinalysis LIGHT H, Urine Color YEL, Urine Clarity HAZY H, Urine pH 6.0, Ur Specific [place] 1.020, Urine Protein 100 H, Urine Ketones NEG, Urine Nitrite NEG, Urine Bilirubin NEG, Urine Urobilinogen 1.0, Ur Leukocyte Esterase NEG, Ur Microscopic SEDIMENT EXAMINED, Urine RBC 5-10 H, Urine WBC 1-3 H, Ur Epithelial Cells PACKD H, Urine Bacteria FEW H, Urine Mucus FEW, Urine Hemoglobin SMALL H, Urine Glucose NEG 06/08/17 0219: Urine Color Cancelled, Urine Clarity Cancelled, Urine pH Cancelled, Ur Specific [place] Cancelled, Urine Protein Cancelled, Urine Ketones Cancelled, Urine Nitrite Cancelled, Urine Bilirubin Cancelled, Urine Urobilinogen Cancelled, Ur Leukocyte Esterase Cancelled, Ur Microscopic Cancelled, Urine Hemoglobin Cancelled, Urine Glucose Cancelled 06/08/17 0015: Lactic Acid 3.2 H 06/07/172047: Lactic Acid 6.6 H 06/07/172047: Anion Gap 19 H, Estimated GFR 48 L, BUN/Creatinine Ratio 21.8, Glucose 121 H, Calcium 8.9, Magnesium 1.7, Total Bilirubin 0.7, GGT 61 H, AST 32, ALT 34, Alkaline Phosphatase 137 H, Troponin I 0.07, [id number] Pept 93569 H, Total Protein 8.3 H, Albumin 3.7, Globulin 4.6 H, Albumin/Globulin Ratio 0.8 L, PT 11.6, INR 1.11, CBC w Diff NO MAN DIFF REQ, RBC 5.13, MCV 91.9, MCH 30.2, RDW 15.9 H, MPV 7.2 L, Gran % 88.3 H, Lymphocytes % 7.2 L, Monocytes % 3.9, Eosinophils % 0.3, Basophils % 0.3, Absolute Granulocytes 9.0 H, Absolute Lymphocytes 0.7 L, Absolute Monocytes 0.4, Absolute Eosinophils 0, Absolute Basophils 0, PUBS MCHC 32.8 L Assessment/Plan Impression/Plan: Impression 77 year old woman from [place]. Most of her care is within the [facility] system. She has a PCP and director weights and measures out of [facility]. Her records are unavailable during examination. She has a signficant smoking hx since age 13, quit a few months ago. She has previously been on oxygen and recently prescribed Symbicort without an official dx of COPD. She also has a cardiac history per patient but that information is unavailable as of yet, it will be requested. She had an "abnormal EKG", she also had an ECHO a few weeks back. She came to ER with dyspnea, leg edmea. Improved in ER, she also received 2L NS. She feels better today, but legs remain swollen and lung exam reveals crackles. She has bilateral effusions, and a significantly elevated BNP. * appears to be in decompensated CHF - unclear what cardiac status is, need to obtain records from her director weights and measures * likely underlying COPD - emphysema is evident on CT, the "ILD" reported is likely pulmonary vascular congestion Plan -records from PMD/Addictions Recovery Specialist from [facility] [place] -cardiology input and if no recent ECHO would require -TRC/Nebs -assess o2 requirements -daily weights, see need for diuresis per cardiology -can cont symbicort, pt wants to follow head grinder out in [facility] [place] -reduce solumedrol to 40mg iv q8h DVT prophylaxis at all times Consult Acknowledgment - Thank you for your consult request.
--- NOTE | 2017-06-08 12:52 | PN- Att Addend ---
Attending Addendum Attending Brief Note Patient seen and examined. Lying in bed and not in acute distress. She reports feeling better compared to presentation. Denies chest pain at rest. Measurements of breath or palpitations at rest. Vital Signs Date Time Temp Pulse Resp B/P B/P Pulse O2 O2 Flow FiO2 Mean Ox Delivery Rate 06/08 1043 146/73 06/08 0845 97.6 85 22 173/91 92 Nasal 2.0L Cannula 06/08 0630 98.0 80 20 149/99 96 Nasal 3.0L Cannula 06/08 0500 97.6 80 18 158/86 96 Nasal 3.0L Cannula 06/08 0244 97.9 82 22 155/85 95 Nasal 3.0L Cannula 06/07 2329 97.9 81 20 154/94 92 Nasal 3.0L Cannula 06/07 2218 97.5 99 18 150/80 93 Nasal 3.0L Cannula 06/07 2100 88 Nasal 4.0L Cannula 06/07 2033 93.1 85 18 152/95 82 Room Air General appearance: Not in acute distress. HEENT: Anicteric, no pallor, pupils equal and reactive Neck: No jugular venous distention Heart: S1-S2 regular Lungs: Diminished air entry in bilateral lung bases with bibasilar crackles. No rhonchi or wheezing noted Abdomen: Soft, nontender with normal bowel sounds Extremities: 1+ pitting edema bilaterally Laboratory Tests 06/08/17 0930: Lactic Acid 2.0 06/08/17 0615: Lactic Acid 2.4 H 06/08/17 0615: Anion Gap 13, Estimated GFR > 60, BUN/Creatinine Ratio 27.8 H, CBC w Diff NO MAN DIFF REQ, RBC 4.21, MCV 91.7, MCH 30.1, RDW 15.5 H, MPV 7.4, Gran % 94.5 H , Lymphocytes % 5.3 L, Monocytes % 0.2 L, Eosinophils % 0, Basophils % 0, Absolute Granulocytes 5.9, Absolute Lymphocytes 0.3 L, Absolute Monocytes 0 L, Absolute Eosinophils 0, Absolute Basophils 0, PUBS MCHC 32.9 L 06/08/17 0445: Troponin I 0.06 06/08/17 0240: Urinalysis LIGHT H, Urine Color YEL, Urine Clarity HAZY H, Urine pH 6.0, Ur Specific [place] 1.020, Urine Protein 100 H, Urine Ketones NEG, Urine Nitrite NEG, Urine Bilirubin NEG, Urine Urobilinogen 1.0, Ur Leukocyte Esterase NEG, Ur Microscopic SEDIMENT EXAMINED, Urine RBC 5-10 H, Urine WBC 1-3 H, Ur Epithelial Cells PACKD H, Urine Bacteria FEW H, Urine Mucus FEW, Urine Hemoglobin SMALL H, Urine Glucose NEG 06/08/17 0219: Urine Color Cancelled, Urine Clarity Cancelled, Urine pH Cancelled, Ur Specific [place] Cancelled, Urine Protein Cancelled, Urine Ketones Cancelled, Urine Nitrite Cancelled, Urine Bilirubin Cancelled, Urine Urobilinogen Cancelled, Ur Leukocyte Esterase Cancelled, Ur Microscopic Cancelled, Urine Hemoglobin Cancelled, Urine Glucose Cancelled 06/08/17 0015: Lactic Acid 3.2 H 06/07/172047: Lactic Acid 6.6 H 06/07/172047: Anion Gap 19 H, Estimated GFR 48 L, BUN/Creatinine Ratio 21.8, Glucose 121 H, Calcium 8.9, Magnesium 1.7, Total Bilirubin 0.7, GGT 61 H, AST 32, ALT 34, Alkaline Phosphatase 137 H, Troponin I 0.07, [id number] Pept 60440 H, Total Protein 8.3 H, Albumin 3.7, Globulin 4.6 H, Albumin/Globulin Ratio 0.8 L, PT 11.6, INR 1.11, CBC w Diff NO MAN DIFF REQ, RBC 5.13, MCV 91.9, MCH 30.2, RDW 15.9 H, MPV 7.2 L, Gran % 88.3 H, Lymphocytes % 7.2 L, Monocytes % 3.9, Eosinophils % 0.3, Basophils % 0.3, Absolute Granulocytes 9.0 H, Absolute Lymphocytes 0.7 L, Absolute Monocytes 0.4, Absolute Eosinophils 0, Absolute Basophils 0, PUBS MCHC 32.8 L Microbiology 06/08 0240 URINE ROUT: Urine Culture - RECD 06/07 2209 BLOOD: Blood Culture - RES 06/07 2044 BLOOD: Blood Culture - CAN Cancelled: CANCELLED PER PHY.HEDJ 77-year-old female with history of non-oxygen dependent COPD, stroke without neurologic sequela, hypertension brought to emergency room for evaluation of shortness of breath. She reports baseline 2 pillow orthopnea but has been getting worse in the past month. She also reports increasing lower extremity edema. Chest imaging in the emergency room shows bilateral pleural effusions she has a BNP of greater than 10,000. ER documentation on presentation notes rhonchi and wheezing on lung exam however lung sounds currently only pertinent for decreased air entry in the bases with mild crackles. Problems: 1. Acute hypoxic respiratory failure 2. Non-oxygen dependent lactic acidosis; COPD 3. Most likely secondary to poor tissue perfusion from hypoxia and not hypotension or sepsis. 4. Benzodiazepine dependence. Plan: -Respiratory distress is likely related to a combination of bronchospasm on presentation and volume overload as noted on imaging and clinical exam. -She did receive aggressive IV hydration in the emergency room on account of her elevated lactic acid level. Records show she has received over 3 L of fluid since admission. -Discontinue IV hydration. Repeat serum chemistry now to reevaluate her sodium level. -Begin diuresis with Lasix 20 mg IV twice daily. - According to the patient she had a recent extensive workup by her wood tank builder. Contact her wood tank builder to obtain previous records including echocardiogram and EKG. If an echocardiogram was not done recently obtain a new one while she is in the hospital. -Continue bronchodilator therapy. Continue systemic steroid therapy with Solu- Medrol however decrease dose to every 12hr today. Start on oral prednisone tomorrow. -Daily weight with strict monitoring of input and output. -Repeat chest x-ray in 48-72 hours.
--- NOTE | 2017-06-08 12:58 | Cons- Cardiology ---
General Information and HPI Consulting Request Date of Consult: 06/08/17 Requested By: Oseas Temple MD Reason for Consult: Shortness of breath History of Present Illness: The patient is a 77-year-old female with history of COPD, hypertension, and tobacco abuse who is a patient of Dr. Trammell from my group. She was recently seen by Dr. Trammell for shortness of breath, and he ordered an echocardiogram. The echocardiogram on 05/26/17 revealed normal left ventricular systolic function, with severely dilated right ventricle, decreased RV function, severe tricuspid regurgitation, and severe pulmonary hypertension with RV systolic pressure of 115 mmHg. She presents with complaint of shortness of breath. She had an acute episode of shortness of breath around Thanksgiving for which she did not seek medical attention. 2 weeks before , she had another acute episode of shortness of breath while placing perez around her stairs, which lasted approximately 15 minutes. Over the past month the shortness of breath has worsened to the point that she is now becoming significant short of breath with climbing only 2-3 stairs. She was noted by her son to have swelling of the lower extremities, and her son convinced her to curtail emergency department. She complains of orthopnea over the past few weeks. She is no longer able to drive or go shopping because of worsening shortness of breath. She has an appointment to see a certifed refrigeration operator as an outpatient, however she has not yet seen him. She notes occasional chest discomfort which she describes as a dull pain in the left side of her chest which is a 3/10 in severity, lasting approximately a minute per episode. She was admitted last night, and was started on IV Solu-Medrol, azithromycin, and nebulizer treatment. She was noted to have elevated lactic acid, and she was treated with 2 L of IV fluid, which was ultimately discontinued for possible fluid overload. She reports that she is feeling somewhat better today. She has an extensive smoking history, however she quit smoking 4 months ago. Allergies/Medications Allergies: Coded Allergies: Cephalosporins (Severe, HIVES, SWELLINGS ALL OVER BODY 06/07/17) acetaminophen (From PERCOCET) (Severe, HIVES, SWELLINGS ALL OVER BODY 06/07/17) aspirin (From PERCODAN) (Severe, HIVES, SWELLINGS ALL OVER BODY 06/07/17) ciprofloxacin (From CIPRO) (Severe, HIVES, SWELLINGS ALL OVER BODY 06/07/17) meperidine (From DEMEROL) (Severe, HIVES, SWELLING ALL OVER BODY 06/07/17) oxycodone (Severe, HIVES, SWELLINGS ALL OVER 06/07/17) Home Med List: Albuterol Sulfate (Proventil Hfa) 90 MCG HFA.AER.AD 2 PUF INH Q4 copd ( Reported) Diazepam 5 MG TABLET 1 TAB PO QPM PRN insomnia (Reported) Lisinopril 30 MG TABLET 1 TAB PO DAILY HTN (Reported) Mirabegron (Myrbetriq) 50 MG TAB.ER.24H 1 TAB PO DAILY bladder spasm ( Reported) Nitrofurantoin Monohyd/M-Cryst (Nitrofurantoin Bibb-Mcr 100 MG) 100 MG CAPSULE 1 CAP PO BID uti (Reported) Current Medications: Current Medications Sig/Gila Start time Last Medication Dose Route Stop Time Status Admin Albuterol Sulfate 2 PUF Q4 06/08 0600 AC 06/08 INH 1043 Albuterol Sulfate 3 ML ONCE ONE 06/07 2044 DC 06/07 INH 06/07 Azithromycin 500 MG Q24H 06/08 2330 AC Dextrose/Water 250 ML IV Azithromycin 500 MG DAILY 06/08 1000 DC Sodium Chloride 250 ML IV Azithromycin 500 MG ONCE ONE 06/07 2244 DC 06/07 Dextrose/Water 250 ML IV 06/07 2343 2328 Azithromycin 500 MG ONCE ONE 06/07 2144 DC 06/07 Sodium Chloride 250 ML IV 06/07 2243 2349 Clindamycin 600 MG ONCE ONE 06/07 2144 DC 06/07 Dextrose/Water 50 ML IV 06/07 2214 2243 Diazepam 5 MG QPM 06/08 2200 AC PO Diazepam 0 .STK-MED ONE 06/08 0221 DC PO Diazepam 10 MG ONCE ONE 06/08 0215 DC 06/08 PO 06/086 0247 Diazepam 5 MG QPM PRN 06/08 0215 DC PO Enoxaparin Sodium 40 MG DAILY 06/08 1000 DC SC Enoxaparin Sodium 30 MG DAILY 06/08 1000 AC 06/08 SC 1043 Ipratropium [place] 2.5 ML Q4 HRS NEEDED PRN 06/08 0230 AC INH Ipratropium [place] 2.5 ML ONCE ONE 06/07 2044 DC 06/07 INH 06/07 2045 205 Lisinopril 30 MG DAILY 06/08 1000 AC 06/08 PO 1043 Methylprednisolone 40 MG BID 06/08 2200 DC IV Methylprednisolone 40 MG Q8 06/08 1400 DC IV Methylprednisolone 40 MG Q8 06/08 1400 AC IV Methylprednisolone 0 .STK-MED ONE 06/07 2114 DC .ROUTE Methylprednisolone 125 MG ONCE ONE 06/07 2044 DC 06/07 IV 06/07 2045 214 Mirabegron 50 MG DAILY 06/08 1000 AC 06/08 PO 1043 Potassium Chloride 0 .STK-MED ONE 06/07 2254 DC PO Potassium Chloride 40 MEQ ONCE ONE 06/07 2245 DC 06/07 PO 06/07 224 2259 Sodium Chloride 1,000 ML Q13H 06/08 0430 AC 06/08 IV 0453 Sodium Chloride 1,000 ML BOLUS ONE 06/07 214 DC 06/07 IV 06/07 2244 2144 Sodium Chloride 1,000 ML BOLUS ONE 06/07 2145 DC 06/07 IV 06/07 2244 2328 Sodium Chloride 1,000 ML BOLUS ONE 06/07 2145 DC IV 06/07 224 Review of Systems Review of Systems: No fever. No chills. No rash. No tremor. No melena. All other systems were reviewed, and were noted to be negative. Past History Travel History Traveled to [place] past 21 day No Medical History Neurological: CVA EENT: NONE Cardiovascular: hypertension Respiratory: NONE Gastrointestinal: NONE Hepatic: NONE Renal: urinary incontinence Musculoskeletal: NONE Psychiatric: anxiety Endocrine: NONE Blood Disorders: NONE Cancer(s): NONE CRIB CLERK/Reproductive: NONE Surgical History Surgical History: appendectomy, lumpectomy Family History Relations & Conditions If Any: FATHER Myocardial infarction, Onset: 60+. MOTHER Stroke Psychosocial History Smoking Status: Former Smoker ETOH Use: denies use Illicit Drug Use: denies illicit drug use ECHO Results (as available) EF% 68 Report: Echocardiogram 05/26/17: Normal LV size and systolic function. Mild concentric LVH. LVEF 68%. The straight septum consistent with right ventricular volume overload. Severely dilated right ventricle with moderately decreased right ventricular systolic function Mild biatrial enlargement Trace mitral regurgitation Severe tricuspid regurgitation Severe pulmonary hypertension, with RV systolic pressure estimated at 115 mmHg Trivial pericardial effusion. Right-sided pleural effusion. Exam & Diagnostic Data Vital Signs and I&O Vital Signs Date Time Temp Pulse Resp B/P B/P Pulse O2 O2 Flow FiO2 Mean Ox Delivery Rate 06/08 1043 146/73 06/08 0845 97.6 85 22 173/91 92 Nasal 2.0L Cannula 06/08 0630 98.0 80 20 149/99 96 Nasal 3.0L Cannula 06/08 0500 97.6 80 18 158/86 96 Nasal 3.0L Cannula 06/08 0244 97.9 82 22 155/85 95 Nasal 3.0L Cannula 06/07 2329 97.9 81 20 154/94 92 Nasal 3.0L Cannula 06/07 2218 97.5 99 18 150/80 93 Nasal 3.0L Cannula 06/07 2100 88 Nasal 4.0L Cannula 06/07 2033 93.1 85 18 152/95 82 Room Air Intake & Output 06/08 1600 06/08 0800 06/08 0000 06/07 1600 06/07 0800 06/07 0000 Intake Total 250 1300 Output Total 300 Balance -50 1300 Intake, IV 250 1300 Output, Urine 300 Patient 99 lb 0.01 oz Weight Weight Reported by Patient Measurement Method Physical Exam: Gen: The patient is in no acute distress HEENT: Normal nose, ears, and oropharynx. Pupils equal bilaterally. Conjunctiva normal. Neck: Supple with no JVD, no masses, and no thyromegaly Lungs: Scattered rales bilaterally with normal respiratory effort Heart: RRR, S1, S2, 1/6 systolic murmur. 1+ peripheral edema, 2+ pulses in the lower extremities bilaterally Abdomen: Soft, nontender, no masses. No hepatomegaly. No splenomegaly Extremities: No clubbing or cyanosis. Normal muscle strength in the upper and lower extremities Skin: Normal skin turgor with no skin ulcers or lesions noted. Neuro: Cranial nerves intact. Sensation intact Psych: Alert and oriented 3 with appropriate affect Labs/Obdulio Results: Laboratory Tests 06/08 06/08 06/08 06/08 0930 0615 0615 0445 Chemistry Sodium (137 - 145 mmol/L) 146 H Potassium (3.5 - 5.1 mmol/L) 4.0 Chloride (98 - 107 mmol/L) 114 H Carbon Dioxide (22 - 30 mmol/L) 19 L Anion Gap (5 - 16) 13 BUN (7 - 17 mg/dL) 25 H Creatinine (0.5 - 1.0 mg/dL) 0.9 Estimated GFR (>60 ml/min) > 60 BUN/Creatinine Ratio (7 - 25 %) 27.8 H Lactic Acid (0.7 - 2.1 mmol/L) 2.0 2.4 H Troponin I (< 0.11 ng/ml) 0.06 Hematology CBC w Diff NO MAN DIFF REQ WBC (4.8 - 10.8 /CUMM) 6.3 RBC (4.20 - 5.40 /CUMM) 4.21 Hgb (12.0 - 16.0 G/DL) 12.7 Hct (37 - 47 %) 38.6 MCV (81.0 - 99.0 FL) 91.7 MCH (27.0 - 31.0 PG) 30.1 RDW (11.5 - 14.5 %) 15.5 H Plt Count (130 - 400 /CUMM) 319 MPV (7.4 - 10.4 FL) 7.4 Gran % (42.2 - 75.2 %) 94.5 H Lymphocytes % (20.5 - 51.1 %) 5.3 L Monocytes % (1.7 - 9.3 %) 0.2 L Eosinophils % (0 - 5 %) 0 Basophils % (0.0 - 2.0 %) 0 Absolute Granulocytes (1.4 - 6.5 /CUMM) 5.9 Absolute Lymphocytes (1.2 - 3.4 /CUMM) 0.3 L Absolute Monocytes (0.10 - 0.60 /CUMM) 0 L Absolute Eosinophils (0.0 - 0.7 /CUMM) 0 Absolute Basophils (0.0 - 0.2 /CUMM) 0 PUBS MCHC (33.0 - 37.0 G/DL) 32.9 L 06/08 06/08 06/08 0240 0219 0015 Chemistry Lactic Acid (0.7 - 2.1 mmol/L) 3.2 H Urines Urinalysis LIGHT H Urine Color (YEL,AMB,STR) YEL Cancelled Urine Clarity (CLEAR) HAZY H Cancelled Urine pH (5.0 - 8.0) 6.0 Cancelled Ur Specific Vendor (1.001 - 1.035) 1.020 Cancelled Urine Protein (NEG,<30 MG/DL) 100 H Cancelled Urine Ketones (NEG) NEG Cancelled Urine Nitrite (NEG) NEG Cancelled Urine Bilirubin (NEG) NEG Cancelled Urine Urobilinogen (0.1 - 1.0 EU/dl) 1.0 Cancelled Ur Leukocyte Esterase (NEG) NEG Cancelled Ur Microscopic SEDIMENT EXAMINED Cancelled Urine RBC (0 - 5 /HPF) 5-10 H Urine WBC (0 - 2 /HPF) 1-3 H Ur Epithelial Cells (NONE,FEW) PACKD H Urine Bacteria (NEG/NONE) FEW H Urine Mucus (FEW,NONE) FEW Urine Hemoglobin (NEG) SMALL H Cancelled Urine Glucose (N MG/DL) NEG Cancelled 06/07 Chemistry Sodium (137 - 145 mmol/L) 148 H Potassium (3.5 - 5.1 mmol/L) 3.2 L Chloride (98 - 107 mmol/L) 111 H Carbon Dioxide (22 - 30 mmol/L) 19 L Anion Gap (5 - 16) 19 H BUN (7 - 17 mg/dL) 24 H Creatinine (0.5 - 1.0 mg/dL) 1.1 H Estimated GFR (>60 ml/min) 48 L BUN/Creatinine Ratio (7 - 25 %) 21.8 Glucose (65 - 99 mg/dL) 121 H Lactic Acid (0.7 - 2.1 mmol/L) 6.6 H Calcium (8.4 - 10.2 mg/dL) 8.9 Magnesium (1.6 - 2.3 mg/dL) 1.7 Total Bilirubin (0.2 - 1.3 mg/dL) 0.7 GGT (12 - 43 U/L) 61 H AST (14 - 36 U/L) 32 ALT (9 - 52 U/L) 34 Alkaline Phosphatase (<127 U/L) 137 H Troponin I (< 0.11 ng/ml) 0.07 [id number] Pept (<125 pg/mL) 27103 H Total Protein (6.3 - 8.2 g/dL) 8.3 H Albumin (3.5 - 5.0 g/dL) 3.7 Globulin (1.9 - 4.2 gm/dL) 4.6 H Albumin/Globulin Ratio (1.1 - 2.2 %) 0.8 L Coagulation PT (9.4 - 12.5 SEC) 11.6 INR (0.90 - 1.19) 1.11 Hematology CBC w Diff NO MAN DIFF REQ WBC (4.8 - 10.8 /CUMM) 10.2 RBC (4.20 - 5.40 /CUMM) 5.13 Hgb (12.0 - 16.0 G/DL) 15.5 Hct (37 - 47 %) 47.2 H MCV (81.0 - 99.0 FL) 91.9 MCH (27.0 - 31.0 PG) 30.2 RDW (11.5 - 14.5 %) 15.9 H Plt Count (130 - 400 /CUMM) 433 H MPV (7.4 - 10.4 FL) 7.2 L Gran % (42.2 - 75.2 %) 88.3 H Lymphocytes % (20.5 - 51.1 %) 7.2 L Monocytes % (1.7 - 9.3 %) 3.9 Eosinophils % (0 - 5 %) 0.3 Basophils % (0.0 - 2.0 %) 0.3 Absolute Granulocytes (1.4 - 6.5 /CUMM) 9.0 H Absolute Lymphocytes (1.2 - 3.4 /CUMM) 0.7 L Absolute Monocytes (0.10 - 0.60 /CUMM) 0.4 Absolute Eosinophils (0.0 - 0.7 /CUMM) 0 Absolute Basophils (0.0 - 0.2 /CUMM) 0 PUBS MCHC (33.0 - 37.0 G/DL) 32.8 L Diagnostic Data EKG Results EKG tracing is independently reviewed, and reveals normal sinus rhythm at 80, atrial premature complex, left axis deviation, nonspecific ST-T abnormality CXR Results There is coarse extensive interstitial lung markings in both lungs that are likely chronic. There is a focus of pleural density and parenchymal linear scarring at the right upper lobe that could be a mass. There is blunting of both costophrenic angles right greater on left due to bilateral pleural effusions. The heart size is normal. No significant central pulmonary vascular congestion. There are calcifications of aortic arch. IMPRESSION: Chronic interstitial lung disease. Question of right upper lobe mass. Bilateral pleural effusions right greater than left. Consider CT chest with contrast for follow-up. Other Results Echocardiogram 05/26/17: Normal LV size and systolic function. Mild concentric LVH. LVEF 68%. The straight septum consistent with right ventricular volume overload. Severely dilated right ventricle with moderately decreased right ventricular systolic function Mild biatrial enlargement Trace mitral regurgitation Severe tricuspid regurgitation Severe pulmonary hypertension, with RV systolic pressure estimated at 115 mmHg Trivial pericardial effusion. Right-sided pleural effusion. CT scan of the chest: The heart is of normal size. There is no pericardial effusion. There is neither mediastinal, hilar nor axillary lymphadenopathy. There are no chest wall masses. There are moderate bilateral pleural effusions. There is extensive emphysema. There is extensive interlobular septal thickening, particularly within the lower lobes. No discrete mass lesions are demonstrable. The visualized upper abdomen demonstrates that the liver is of normal size and attenuation without focal lesions. Normal adrenal glands are identified. Bone windows: Neither sclerotic nor lytic bone lesions are identified. IMPRESSION: Moderate bilateral pleural effusions. Extensive emphysema. Nonspecific diffuse interlobular septal thickening. Assessment/Plan Assessment/Plan The patient is a 77-year-old female with history of COPD and tobacco abuse presenting with worsening shortness of breath over the past few months. She had an outpatient echocardiogram 2 weeks ago which revealed severely dilated right ventricle, decreased RV function, severe tricuspid regurgitation, and severe pulmonary hypertension. She appears to have exacerbation of her underlying COPD in addition to right heart failure and likely diastolic left heart failure. The severe pulmonary hypertension with RV systolic pressure of 115 mmHg was a new finding on her recent echocardiogram and is likely symptomatic as well. Recommendations: * With diuresis with Lasix 20 mg IV every 12 hours * Monitor input and output with daily weights * Check basic metabolic profile daily * No need to repeat echocardiogram since her outpatient echocardiogram was performed 2 weeks ago. * Follow pulmonary recommendations. Consult Acknowledgment - Thank you for your consult request.
[2017-06-08 13:19] VITALS: BP 180/92
[2017-06-08 14:36] VITALS: BP 164/98
[2017-06-08 22:06] VITALS: BP 130/88
[2017-06-09 06:53] VITALS: BP 162/80
[2017-06-09 07:52] LABS: ABSOLUTE BASOPHIL COUNT 0 /CUMM (0.0-0.2); ABSOLUTE EOSINOPHIL COUNT 0 /CUMM (0.0-0.7); ABSOLUTE LYMPH COUNT 0.5 /CUMM (1.2-3.4); ABSOLUTE MONOCYTE COUNT 0.3 /CUMM (0.10-0.60); BASOPHIL % 0 % (0.0-2.0); EOSINOPHIL % 0 % (0-5); RED BLOOD CELL CT 4.11 /CUMM (4.20-5.40)
[2017-06-09 08:17] LABS: ABSOLUTE GRANULOCYTE CT 11.7 /CUMM (1.4-6.5); HEMATOCRIT 37.5 % (37-47); MEAN CORPUSCULAR HGB 29.5 PG (27.0-31.0); MEAN CORPUSCULAR HGB CONC 32.5 G/DL (33.0-37.0); MEAN CORPUSCULAR VOLUME 91.1 FL (81.0-99.0); MEAN PLATELET VOLUME 7.2 FL (7.4-10.4); PLATELET COUNT 345 /CUMM (130-400); RBC DISTRIBUTION WIDTH 15.4 % (11.5-14.5)
[2017-06-09 08:34] LABS: WHITE BLOOD CELL COUNT 12.5 /CUMM (4.8-10.8)
[2017-06-09 08:42] LABS: GRANULOCYTE % 93.8 % (42.2-75.2)
--- NOTE | 2017-06-09 09:54 | PN- Housestaff ---
Devante MITCHELL,Tim 06/09/17 0953: Subjective Follow-up For: Follow-up COPD acute exacerbation, pulmonary hypertension, right-sided heart failure Complaints: she wanted to have valium to decrease her anxiety Tele-Events Since Last Visit: Normal sinus rhythm with heart rate of 70 -76. Subjective: Patient seen and examined at the bedside. She was very anxious and wanted to have valium. We discussed in detail, about the cause of her anxiety. She told that she doesn't want to be sick and have treatment in the hospital. We discussed about her medical issues and told that she need acute treatment. We also advised that we cant give extra doses of sedative medication. Review of Systems Constitutional: Reports: weakness. Respiratory: Reports: short of breath, wheezing. Objective Last 24 Hrs of Vital Signs/I&O Vital Signs Date Time Temp Pulse Resp B/P B/P Pulse O2 O2 Flow FiO2 Mean Ox Delivery Rate 06/10 1501 98.1 86 20 154/86 95 Nasal 2.0L Cannula 06/10 1434 Nasal 3.0L Cannula 06/10 1344 94 Nasal 1.0L Cannula 06/10 0905 74 168/74 06/10 0800 97 Nasal 2.0L Cannula 06/10 0546 98.2 67 20 168/74 93 Nasal Cannula 06/10 0000 94 Nasal 2.0L Cannula 06/09 2214 97.9 80 20 122/80 94 Nasal 2.0L Cannula 06/09 2114 93 Nasal 2.0L Cannula Intake & Output 06/10 1600 06/10 0800 06/10 0000 Intake Total 200 670 Output Total 1999 1100 Balance -1800 -430 Intake, IV 270 Intake, Oral 200 400 Output, Urine 1999 1100 Patient 48.648 kg Weight Physical Exam General Appearance: Alert, Oriented X3, Cooperative, No Acute Distress Cardiovascular: Normal S1, Normal S2 Lungs: bilateral wheezing, and decreased air entry Abdomen: Soft, No Tenderness Extremities: mild bilateral leg edema Vascular: Normal Pulses, Pulses Symmetrical Current Medications: Current Medications Sig/Gila Start time Last Medication Dose Route Stop Time Status Admin Albuterol Sulfate 3 ML Q4P PRN 06/08 2215 AC INH Albuterol Sulfate 2 PUF Q4 06/08 0600 AC 06/10 INH 1416 Aspirin 81 MG DAILY 06/10 1400 DC PO Azithromycin 250 MG DAILY 06/10 1000 AC 06/10 PO 06/11 1200 1052 Azithromycin 500 MG Q24H 06/08 2330 DC 06/09 Dextrose/Water 250 ML IV 2250 Diazepam 5 MG QPM 06/08 2200 AC 06/09 PO 2250 Enoxaparin Sodium 30 MG DAILY 06/08 1000 AC 06/10 SC 0902 Furosemide 20 MG 7:30 AM, & 4:30 PM 06/10 1630 AC IV Furosemide 40 MG DAILY 06/10 1000 CAN PO Ipratropium [place] 2.5 ML Q4 HRS NEEDED PRN 06/08 0230 AC INH Lisinopril 30 MG DAILY 06/08 1000 AC 06/10 PO 0905 Magnesium Oxide 400 MG BID 06/10 1000 AC 06/10 PO 0901 Magnesium Sulfate 1 GM ONCE ONE 06/10 0815 DC 06/10 Dextrose/Water 100 ML IV 06/10 1214 1053 Mirabegron 50 MG DAILY 06/08 1000 AC 06/10 PO 0901 Omeprazole 40 MG DAILY AC 06/10 1400 AC PO Potassium Chloride 40 MEQ BID 06/10 1000 AC 06/10 PO 0901 Prednisone 10 MG DAILY 06/16 1000 AC PO 06/17 1001 Prednisone 20 MG DAILY 06/14 1000 AC PO 06/15 1001 Prednisone 30 MG DAILY 06/12 1000 AC PO 06/13 1001 Prednisone 40 MG DAILY 06/10 1000 AC 06/10 PO 06/11 1001 0901 Last 24 Hrs of Lab/Obdulio Results Last 24 Hrs of Labs/Mics: Laboratory Tests 06/10/17 1445: Troponin I Pending 06/10/17 0500: Troponin I 0.10 06/10/17 0500: Anion Gap 11, Estimated GFR > 60, BUN/Creatinine Ratio 25.0, Magnesium 1.5 L, Triglycerides 102, Cholesterol 146, LDL Cholesterol, Calc 73, HDL Cholesterol 53 , Cholesterol/HDL Ratio 3, CBC w Diff MAN DIFF ORDERED, RBC 4.64, MCV 90.8, MCH 29.5, RDW 15.6 H, MPV 7.1 L, Gran % 87.1 H, Lymphocytes % 9.7 L, Monocytes % 2.8, Eosinophils % 0, Basophils % 0.4, Absolute Granulocytes 11.3 H, Segmented Neutrophils 81 H, Band Neutrophils 1, Absolute Lymphocytes 1.3, Lymphocytes 10 L, Monocytes 8, Absolute Monocytes 0.4, Absolute Eosinophils 0, Absolute Basophils 0.1, Platelet Estimate ADEQUATE, Polychromasia 1+, Hypochromic- Microcytic 1+, Poikilocytosis 1+, Basophilic Stippling 1+, Ovalocytes 1+, PUBS MCHC 32.5 L, Fld Total RBCs Counted 100 Assessment/Plan Assessment: Patient is a 77-year-old female, chronic smoker, resident of [place], presented with chief complaints of dyspnea on exertion, bilateral lower leg edema since couple of months. Patient was following at [facility]. She was having history of shortness of breath since last couple of months and was told to have echocardiogram which was done and 05/26/2017 which showed normal left ventricular systolic function with dilated right ventricle, decreased right ventricle function, severe TR, severe pul HTN with RVSP of 115. As her bilateral leg swelling has been increased. Her son convinced her to come to ED. ED course -vital signs at the time of presentation, temperature 97.5, pulse 99, respiratory rate 18, blood pressure 150/80, SPO2 82% on room air, 93% on 3 liters of nasal cannula. On examination Lung examination -bilateral crackles, extremities, bilateral lower leg edema. Blood workup showed hemoglobin 15.5, hematocrit 47.2, platelet count 433, serum sodium 148, potassium 3.2, BUN 24, creatinine 1.1, lactic acid 6.6, anion gap 19 , calcium 8.9, albumin 3.7, alkaline phosphatase 137, proBNP 10,700.His lactic acid was high, so she was given 2 liters of IV fluid and discontinued later on for possible volume overload. Patient was admitted into telemetry floor for further evaluation and treatment. Past medical history - COPD not on home oxygen Chronic smoker Hypertension History of CVA(2002) History of urinary incontinence Assessment and plan - Acute decompensated right-sided heart failure secondary to exacerbation of COPD and severe pulmonary hypertension - * We will continue oxygen to keep SPO2 more than 90% * Keep head end of the bed elevated * Daily weight measurement * Strict intake output charting * We will change IV steroids to PO.We started her on tab prednisone 40 mgs daily , with taper on every 2 days. * We will change IV Lasix to by mouth 40 milligrams daily. * TRC/nebulization * We will continue tablet azithromycin 500 milligrams daily for total 5 days. * We will discuss tomorrow,If this patient can need aspirin, statins. Hypertension - * We will continue tab lisinopril 30 mgs daily Bladder incontinence - * We will continue tab Mirabegron 50mg Daily. CODE STATUS-DNR/DNI Diet-heart healthy diet with fluid restriction DVT prophylaxis-ALP S/heparin Problem List: 1. COPD exacerbation 2. Right-sided heart failure 3. Pulmonary hypertension Pain Ratin Pain Location: Not applicable Pain Goal: Remain pain free Pain Plan: Avoid NSAIDs Tomorrow's Labs & Rationales: Follow-up CBC/BEP. DVT/Prophylaxis: mechanical, pharmacological Corey Alves MD 06/09/17 1624: Attending MD Review Statement Attending Statement Attending MD Statement: examined this patient, discuss w/resident/PA/DIAMOND SORTER, agreed w/resident/PA/DIAMOND SORTER, reviewed EMR data (avail), discussed with nursing, discussed with case mgmt, amended to note Attending Assessment/Plan: Patient seen and examined resting comfortably not in acute distress. She reports feeling much better following diuresis overnight. She is negative over 3 L just today and has dropped about 4 kg overnight in weight. Case was discussed with cardiology service. Outpatient echocardiogram showed severe pulmonary hypertension. This will need to be worked up further in the outpatient setting including having a right heart catheterization. For now we will optimize her cardiopulmonary status with diuresis and bronchodilator therapy with systemic steroid therapy. Once adequately optimized to be discharged home to continue follow-up in the outpatient setting with her cardiology and pulmonology service. On examination today she appears very comfortable. She was adamant on leaving the hospital without oxygen initially however when I counseled him the rationale and benefits of oxygen therapy she is now agreeable. Heart sounds are regular. She has adequate entry bilaterally with no added sounds. Abdomen is soft and nontender she has trace peripheral edema. Recommendations: -Given her significant volume output today recommend discontinuing the evening dose of Lasix today starting patient on Lasix 40 mams on the tomorrow. -Continue bronchodilator therapy. Taper down to oral steroid therapy. -Mobilize patient as tolerated. -Anticipate discharge in the next 48 hours if she tolerates oral Lasix therapy.
--- NOTE | 2017-06-09 10:45 | PN- Pulmonary ---
Subjective HPI/Critical Care Issues: Generally - Awake, alert and comfortable without distress Head and neck - normocephalic, atraumatic, EOMI grossly intact Cardiovascular - S1, S2 Lungs - bilateral crackles Abdomen - Bowel sounds positive, soft, non-tender Extremities - bilater edema Objective Current Medications: Current Medications Sig/Gila Start time Last Medication Dose Route Stop Time Status Admin Albuterol Sulfate 3 ML Q4P PRN 06/08 2215 AC INH Albuterol Sulfate 2 PUF Q4 06/08 0600 AC 06/09 INH 0551 Azithromycin 500 MG Q24H 06/08 2330 AC 06/09 Dextrose/Water 250 ML IV 0005 Diazepam 5 MG QPM 06/08 220 AC 06/08 PO 2118 Enoxaparin Sodium 30 MG DAILY 06/08 1000 AC 06/08 SC 1043 Furosemide 40 MG .STK-MED ONE 06/08 1637 DC IV 06/08 1638 Furosemide 20 MG 7:30 AM, & 4:30 PM 06/08 1630 AC 06/09 IV 0832 Furosemide 20 MG ONCE ONE 06/08 1630 DC IV 06/08 1631 Ipratropium [place] 2.5 ML Q4 HRS NEEDED PRN 06/08 0230 AC INH Lisinopril 30 MG DAILY 06/08 1000 AC 06/09 PO 0907 Methylprednisolone 40 MG BID 06/08 2199 DC IV Methylprednisolone 40 MG Q12 06/08 2200 DC 06/08 IV 06/09 1100 2118 Methylprednisolone 40 MG Q8 06/08 1400 DC 06/08 IV 1422 Mirabegron 50 MG DAILY 06/08 1000 AC 06/09 PO 0905 Prednisone 40 MG DAILY 06/09 1000 AC 06/09 PO 0906 Sodium Chloride 1,000 ML Q13H 06/08 0430 DC 06/08 IV 0453 Vital Signs & I&O Last 24 Hrs of Vitals and I&O: Vital Signs Date Time Temp Pulse Resp B/P B/P Pulse O2 O2 Flow FiO2 Mean Ox Delivery Rate 06/09 906 96 162/80 06/09 08 94 Nasal 2.0L Cannula 06/09 0653 97.7 78 20 162/80 94 Nasal Cannula 06/08 2205 97.8 100 20 130/88 91 06/08 2201 Nasal 2.0L Cannula 06/08 2201 94 Nasal 2.0L Cannula 06/088 Nasal 3.0L Cannula 06/08 1436 Nasal 3.0L Cannula 06/08 1436 97.4 87 20 164/98 93 Nasal 2.0L Cannula 06/08 1319 97.0 91 20 180/92 91 Nasal 3.0L Cannula Intake & Output 06/09 1600 06/09 0800 06/09 0000 Intake Total 250 Output Total 1000 500 Balance -750 -500 Intake, IV 250 Output, Urine 1000 500 Patient 114 lb Weight Weight Bed scale Measurement Method Exam Other Physical Findings: Generally - Awake, alert and comfortable without distress Head and neck - normocephalic, atraumatic, EOMI grossly intact Cardiovascular - S1, S2 Lungs - bilateral crackles Abdomen - Bowel sounds positive, soft, non-tender Extremities - bilater edema Results Last 24 Hrs of Lab Results: Laboratory Tests 06/09/17 0645: Anion Gap 13, Estimated GFR > 60, BUN/Creatinine Ratio 22.5, CBC w Diff NO MAN DIFF REQ, RBC 4.11 L, MCV 91.1, MCH 29.5, RDW 15.4 H, MPV 7.2 L, Gran % 93.8 H, Lymphocytes % 3.8 L, Monocytes % 2.4, Eosinophils % 0, Basophils % 0, Absolute Granulocytes 11.7 H, Absolute Lymphocytes 0.5 L, Absolute Monocytes 0.3, Absolute Eosinophils 0, Absolute Basophils 0, PUBS MCHC 32.5 L 06/08/17 1859: Anion Gap 15, Estimated GFR > 60, BUN/Creatinine Ratio 22.2 Impression/Plan Impression/Plan Impression/Plan: Impression 77 year old woman * appears to be improved -decompensated CHF - severe pulmonary htn estimated on ECHO * likely underlying COPD - emphysema is evident on CT, the "ILD" reported is likely pulmonary vascular congestion Plan -f/u cardiology recs -TRC/Nebs -assess o2 requirements -daily weights, see need for diuresis per cardiology -can cont symbicort, pt wants to follow cardiac monitor technician out in [facility] solumedrol -begin prednisone 40mg with a taper every 2 days by 10mg -assess o2 needs DVT prophylaxis at all times
--- NOTE | 2017-06-09 11:52 | PN- Cardiology ---
Subjective Subjective: The patient seems to be doing somewhat better clinically. She is very anxious to leave. Objective Vital Signs and I&Os Vital Signs Date Time Temp Pulse Resp B/P B/P Pulse O2 O2 Flow FiO2 Mean Ox Delivery Rate 06/09 906 96 162/80 06/09 799 94 Nasal 2.0L Cannula 06/09 0553 97.7 78 20 162/80 94 Nasal Cannula 06/08 220 97.8 100 20 130/88 91 06/08 220 Nasal 2.0L Cannula 06/08 2201 94 Nasal 2.0L Cannula 06/08 2128 Nasal 3.0L Cannula 06/08 143 Nasal 3.0L Cannula 06/08 143 97.4 87 20 164/98 93 Nasal 2.0L Cannula 06/08 1319 97.0 91 20 180/92 91 Nasal 3.0L Cannula Intake & Output 06/09 1600 06/09 0800 06/09 0000 06/08 1600 06/08 0800 06/08 0000 Intake Total 773 076 5234 Output Total 1000 500 300 Balance -750 -500 -50 1300 Intake, IV 092 501 8640 Output, Urine 1000 500 300 Patient 114 lb 122 lb 99 lb 0.01 oz Weight Weight Bed scale Bed scale Reported by Patient Measurement Method Physical Exam: General Appearance Alert, Oriented X3, Cooperative, No Acute Distress Skin normal HEENT Atraumatic, PERRLA, EOMI, Mucous Membr. moist/pink Cardiovascular Regular Rate, Normal S1, Normal S2, 1 to 2/6 systolic murmur left upper sternal border Lungs bilateral rhonchi with decreased breath sounds at the bases Abdomen Normal Bowel Sounds, Soft, No Tenderness Extremities No Clubbing, No Cyanosis, Normal Pulses, No Tenderness/Swelling, 1-2 + pitting edema bilaterally Current Medications: Current Medications Sig/Gila Start time Last Medication Dose Route Stop Time Status Admin Albuterol Sulfate 3 ML Q4P PRN 06/08 2214 AC INH Albuterol Sulfate 2 PUF Q4 06/08 599 AC 06/09 INH 0551 Azithromycin 500 MG Q24H 06/08 2330 AC 06/09 Dextrose/Water 250 ML IV 0005 Diazepam 5 MG QPM 06/080 AC 06/08 PO 2118 Enoxaparin Sodium 30 MG DAILY 06/08 1000 AC 06/08 SC 1043 Furosemide 40 MG .STK-MED ONE 06/08 1637 DC IV 06/08 1638 Furosemide 20 MG 7:30 AM, & 4:30 PM 06/08 1630 AC 06/09 IV 0832 Furosemide 20 MG ONCE ONE 06/08 1630 DC IV 06/08 1631 Ipratropium [place] 2.5 ML Q4 HRS NEEDED PRN 06/08 0230 AC INH Lisinopril 30 MG DAILY 06/08 1000 AC 06/09 PO 0907 Methylprednisolone 40 MG BID 06/08 2199 DC IV Methylprednisolone 40 MG Q12 06/08 2200 DC 06/08 IV 06/09 1100 2118 Methylprednisolone 40 MG Q8 06/08 1400 DC 06/08 IV 1422 Mirabegron 50 MG DAILY 06/08 1000 AC 06/09 PO 0905 Prednisone 40 MG DAILY 06/09 1000 AC 06/09 PO 0906 Sodium Chloride 1,000 ML Q13H 06/08 0430 DC 06/08 IV 0453 Results Last 48 Hrs of Labs/Mics: Laboratory Tests 06/09/17 0645: Anion Gap 13, Estimated GFR > 60, BUN/Creatinine Ratio 22.5, CBC w Diff NO MAN DIFF REQ, RBC 4.11 L, MCV 91.1, MCH 29.5, RDW 15.4 H, MPV 7.2 L, Gran % 93.8 H, Lymphocytes % 3.8 L, Monocytes % 2.4, Eosinophils % 0, Basophils % 0, Absolute Granulocytes 11.7 H, Absolute Lymphocytes 0.5 L, Absolute Monocytes 0.3, Absolute Eosinophils 0, Absolute Basophils 0, PUBS MCHC 32.5 L 06/08/17 1859: Anion Gap 15, Estimated GFR > 60, BUN/Creatinine Ratio 22.2 06/08/17 0930: Lactic Acid 2.0 06/08/17 0615: Lactic Acid 2.4 H 06/08/17 0615: Anion Gap 13, Estimated GFR > 60, BUN/Creatinine Ratio 27.8 H, CBC w Diff NO MAN DIFF REQ, RBC 4.21, MCV 91.7, MCH 30.1, RDW 15.5 H, MPV 7.4, Gran % 94.5 H , Lymphocytes % 5.3 L, Monocytes % 0.2 L, Eosinophils % 0, Basophils % 0, Absolute Granulocytes 5.9, Absolute Lymphocytes 0.3 L, Absolute Monocytes 0 L, Absolute Eosinophils 0, Absolute Basophils 0, PUBS MCHC 32.9 L 06/08/17 0445: Troponin I 0.06 06/08/17 0240: Urinalysis LIGHT H, Urine Color YEL, Urine Clarity HAZY H, Urine pH 6.0, Ur Specific [place] 1.020, Urine Protein 100 H, Urine Ketones NEG, Urine Nitrite NEG, Urine Bilirubin NEG, Urine Urobilinogen 1.0, Ur Leukocyte Esterase NEG, Ur Microscopic SEDIMENT EXAMINED, Urine RBC 5-10 H, Urine WBC 1-3 H, Ur Epithelial Cells PACKD H, Urine Bacteria FEW H, Urine Mucus FEW, Urine Hemoglobin SMALL H, Urine Glucose NEG 06/08/17 0219: Urine Color Cancelled, Urine Clarity Cancelled, Urine pH Cancelled, Ur Specific [place] Cancelled, Urine Protein Cancelled, Urine Ketones Cancelled, Urine Nitrite Cancelled, Urine Bilirubin Cancelled, Urine Urobilinogen Cancelled, Ur Leukocyte Esterase Cancelled, Ur Microscopic Cancelled, Urine Hemoglobin Cancelled, Urine Glucose Cancelled 06/08/17 0015: Lactic Acid 3.2 H 06/07/172047: Lactic Acid 6.6 H 06/07/172047: Anion Gap 19 H, Estimated GFR 48 L, BUN/Creatinine Ratio 21.8, Glucose 121 H, Calcium 8.9, Magnesium 1.7, Total Bilirubin 0.7, GGT 61 H, AST 32, ALT 34, Alkaline Phosphatase 137 H, Troponin I 0.07, Abu-S-Hqqfckjqfvs Pept 64741 H, Total Protein 8.3 H, Albumin 3.7, Globulin 4.6 H, Albumin/Globulin Ratio 0.8 L, PT 11.6, INR 1.11, CBC w Diff NO MAN DIFF REQ, RBC 5.13, MCV 91.9, MCH 30.2, RDW 15.9 H, MPV 7.2 L, Gran % 88.3 H, Lymphocytes % 7.2 L, Monocytes % 3.9, Eosinophils % 0.3, Basophils % 0.3, Absolute Granulocytes 9.0 H, Absolute Lymphocytes 0.7 L, Absolute Monocytes 0.4, Absolute Eosinophils 0, Absolute Basophils 0, PUBS MCHC 32.8 L Assessment/Plan Assessment/Plan Assessment: 1. Worsening dyspnea 2. Cor pulmonale and severe pulmonary hypertension by recent echocardiogram with an RV systolic pressure of greater than 100 mmHg and severe tricuspid insufficiency 3. Bilateral pleural effusions 4. COPD 5. Elevated proBNP 6. History of hypertension 7. History of prior stroke Recommendations: -Continue diuresis as outlined. Continue to monitor her intakes, outputs, and daily weights. -Follow-up labs in the morning -Continue current recommendations for pulmonary treatment as per Dr. Rosales -Out of bed and ambulate with monitoring of oxygen saturations, etc. - Continue telemetry? Yes
[2017-06-09 14:47] VITALS: BP 122/78
--- NOTE | 2017-06-09 20:25 | Discharge Summary ---
Visit Information Visit Dates Admission Date: 06/07/17 Discharge Date: 06/11/2017 Hospital Course Course Attending Physician: Corey Alves MD Primary Care Physician: Blayne London DO Hospital Course: Patient is a 77-year-old female, chronic smoker, resident of [place], presented with chief complaints of dyspnea on exertion, bilateral lower leg edema since couple of months. Patient was following at [facility] to practical nurse clinical coordinator Dr Rios. She was told to have echocardiogram which was done and 05/26/2017,which showed normal left ventricular systolic function with dilated right ventricle,decreased right ventricle function, severe TR, severe pul HTN with RVSP of 115. As her bilateral leg swelling has been increased, her son convinced her to come to ED. ED course -vital signs at the time of presentation, temperature 97.5, pulse 99, respiratory rate 18, blood pressure 150/80, SPO2 82% on room air, 93% on 3 liters of nasal cannula. On examination there was bilateral crackles,bilateral lower leg edema. Blood workup showed hemoglobin 15.5, hematocrit 47.2, platelet count 433, serum sodium 148, potassium 3.2, BUN 24, creatinine 1.1, lactic acid 6.6, anion gap 19, calcium 8.9, albumin 3.7, alkaline phosphatase 137, proBNP 10 ,700.His lactic acid was high, so she was given 2 liters of IV fluid and discontinued later because of volume overload. Patient was admitted into telemetry floor for further evaluation and treatment. Acute hypoxic respiratory failure secondary to severe pulmonary hypertension and right-sided heart failure and COPD acute exacerbation - We admitted the patient to telemetry floor.We obtained cardiology and pulmonology consult.We started patient on azithromycin, tapering dose of steroids, oxygen and nebulization. We obtained consult from cardiology and advised for IV Lasix and right heart catheterization for future management of pulmonary hypertension. Patient responded well to diuresis and steroid. Initially her oxygen requirement was 4-6 liter, which came down to 2 liters at rest. She was saturating 92-94% on 2 liters at rest. We advise to continue 2 liters of oxygen during the day and nighttime. If the oxygen requirement become increased or she esaturateds than she need to visit fitting room checker, immediately. We also advised to follow-up with Dr. Payan at [facility] for right heart catheterization in next week (06/15/2017 - 06/16/2017). GERD She was having episodes of heartburn.We did EKGs, and serial troponins to rule out acute coronary syndrome. EKG showed dynamic T-wave changes in V1/V2. Serial troponins were negative.We started patient on omeprazole 20 mgs daily. Advised to follow-up with PCP for further management. Hypertension We continued her home antihypertensive tab lisinopril 30 mgs daily. Her blood pressure at the time of discharge was 150/80. We advised to check blood pressure regularly and follow-up with PCP. Overactive bladder (OAB) She is on Mirabegron, 50mg Daily. We advised to continue and follow up with urologist for further management. History of CVA She is allergic to Aspirin so we didnt started on Aspirin and even patient doesnt want it. Her lipid profile was normal(TG-102,Cholesterol-146,LDL-73,HDL- 53), so didnt started on statins. Allergies: Coded Allergies: Cephalosporins (Severe, HIVES, SWELLINGS ALL OVER BODY 06/07/17) acetaminophen (From PERCOCET) (Severe, HIVES, SWELLINGS ALL OVER BODY 06/07/17) aspirin (From PERCODAN) (Severe, HIVES, SWELLINGS ALL OVER BODY 06/07/17) ciprofloxacin (From CIPRO) (Severe, HIVES, SWELLINGS ALL OVER BODY 06/07/17) meperidine (From DEMEROL) (Severe, HIVES, SWELLING ALL OVER BODY 06/07/17) oxycodone (Severe, HIVES, SWELLINGS ALL OVER 06/07/17) Disposition Summary Disposition Principal Diagnosis: Acute hypoxic respiratory failure secondary to severe pulmonary hypertension Acute on chronic diastolic heart failure. COPD acute exacerbation Additional Diagnosis: Chronic active smoker History of CVA 2003 Hypertension. Urinary incontinence. Anxiety. Discharge Disposition: SNF Discharge Instructions General Discharge Information Code Status: Do Not Resucitate/Intubat Patient's Diet: Fluid restriction to 2 liters per day, low sodium, heart healthy diet Patient's Activity: As tolerated Follow-Up Instructions/Appts: Advised to take an appointment with the PCP for further follow-up. Advised to take an appointment with , for further management of pulmonary hypertension and right heart failure. She may need right heart catheterization for further decision of management of pulmonary hypertension. Advised to take the steroid as prescribed and follow-up with fitting room checker for further decision of continuing or stopping the steroid medication. Medications at Discharge Discharge Medications: Stop taking the following medications: Nitrofurantoin Monohyd/M-Cryst (Nitrofurantoin [place]-Mcr 100 MG) 100 MG CAPSULE ORAL TWICE DAILY Qty = 90 Continue taking these medications: Diazepam (Diazepam) 5 MG TABLET 1 Tablet ORAL Every night as needed for insomnia Qty = 90 Comments: Last Taken:06/10/17 Time:2216 Albuterol Sulfate (Proventil Hfa) 90 MCG HFA.AER.AD 2 Puff Inhale through mouth Every 4 hours Qty = 7 Comments: Last Taken:06/11/17 Time:0836 Mirabegron (Myrbetriq) 50 MG TAB.ER.24H 1 Tablet ORAL DAILY Qty = 90 Comments: Last Taken:06/11/17 Time:0835 Lisinopril (Lisinopril) 30 MG TABLET 1 Tablet ORAL DAILY Qty = 90 Comments: Last Taken:06/11/17 Time:0835 Start taking the following new medications: Magnesium Oxide (Magnesium Oxide) 400 MG TABLET 400 Milligram ORAL DAILY Qty = 5 No Refills Comments: Last Taken:06/11/17 TIME:0836 Omeprazole (Omeprazole) 20 MG CAPSULE.DR 1 Capsule ORAL DAILY BEFORE BREAKFAST Qty = 10 No Refills Comments: Last Taken:06/11/17 Time:0604 Prednisone (Prednisone) 10 MG TABLET 1 Tablet ORAL See Instructions Qty = 15 No Refills Instructions: 3TAB ONCE DAILY 06/12 - 06/13 2TAB ONCE DAILY 06/14 - 06/15 1TAB ONCE DAILY 06/16 - 06/17 0.5MG CONTINUE AND FOLLOW UP WITH LUNG Comments: Last Taken:06/11/17 Time:0835 Furosemide (Lasix) 20 MG TABLET 1 Tablet ORAL DAILY Qty = 30 No Refills Comments: Last Taken:06/11/17 Time:0835 Budesonide/Formoterol Fumarate (Symbicort 160-4.5 Mcg Inhaler) 160 MCG-4.5 MCG/ ACTUATION HFA.AER.AD 2 Puff Inhale through mouth TWICE DAILY Qty = 30 No Refills Comments: NOT GIVEN AT HOSPITAL Potassium Chloride (Potassium Chloride) 10 MEQ TABLET.ER 1 Tablet ORAL DAILY Qty = 10 No Refills Comments: NOT GIVEN AT HOSPITAL Copies To: Surya NICOLE,Blayne Epperson; Jp MITCHELL,Brooks [place] Attending MD Review Statement Documenting Attending: Corey Alves MD Other Findings: Patient is medically stable to be discharged to the skilled medicine facility for short-term rehabilitation
[2017-06-09 22:14] VITALS: BP 122/80
[2017-06-10 05:37] LABS: ABSOLUTE BASOPHIL COUNT 0.1 /CUMM (0.0-0.2); ABSOLUTE EOSINOPHIL COUNT 0 /CUMM (0.0-0.7); ABSOLUTE GRANULOCYTE CT 11.3 /CUMM (1.4-6.5); ABSOLUTE LYMPH COUNT 1.3 /CUMM (1.2-3.4); ABSOLUTE MONOCYTE COUNT 0.4 /CUMM (0.10-0.60); BASOPHIL % 0.4 % (0.0-2.0); EOSINOPHIL % 0 % (0-5); GRANULOCYTE % 87.1 % (42.2-75.2); HEMATOCRIT 42.2 % (37-47); MEAN CORPUSCULAR HGB 29.5 PG (27.0-31.0); MEAN CORPUSCULAR HGB CONC 32.5 G/DL (33.0-37.0); MEAN CORPUSCULAR VOLUME 90.8 FL (81.0-99.0); MEAN PLATELET VOLUME 7.1 FL (7.4-10.4); PLATELET COUNT 371 /CUMM (130-400); RBC DISTRIBUTION WIDTH 15.6 % (11.5-14.5); RED BLOOD CELL CT 4.64 /CUMM (4.20-5.40)
[2017-06-10 05:46] VITALS: BP 168/74
--- NOTE | 2017-06-10 09:38 | RADIOLOGY REPORT ---
EXAMINATION: XR CHEST CLINICAL INFORMATION: Shortness of breath. COMPARISON: Chest x-ray 06/07/2017. TECHNIQUE: Portable frontal view of the chest. FINDINGS: The cardiomediastinal silhouette is stable. The lungs are hypoexpanded. Emphysema. Coarse interstitial thickening diffusely. Focal airspace opacity in the right upper lateral chest is unchanged. Small right pleural effusion is stable. Trace left pleural effusion is increased a little bit from 06/07/2017. IMPRESSION: Emphysema and interstitial disease. Bilateral pleural effusions are stable on the right and slightly increased on the left, but both are considered small in volume. Focal airspace opacity in the right upper lateral chest is unchanged.
--- NOTE | 2017-06-10 09:53 | PN- Housestaff ---
Devante MITCHELL,Tim 06/10/17 0952: Subjective Follow-up For: Follow-up COPD acute exacerbation, pulmonary hypertension, right-sided heart failure Complaints: no complaints Tele-Events Since Last Visit: Normal sinus rhythm, heart rate between 70-73 Subjective: Patient is seen and examined at the bedside. She does not have any active complaints. Overnight she was complaining of mild chest pain, 2 episodes,feels like heartburn, it lasted for 30 seconds to 1 minute. Troponin was done at 5 a.m., which was showing rising trend,0.11. EKG was also done which showed dynamic T-wave changes in V1 and V2. Discussed with ,advised to trend the troponins for today every 6 hourly. She was very, worried of going home. She underwent physical therapy today advised for STR as she is unsafe to discharge home due to poor safety awareness. Review of Systems Constitutional: Reports: weakness. Objective Last 24 Hrs of Vital Signs/I&O Vital Signs Date Time Temp Pulse Resp B/P B/P Pulse O2 O2 Flow FiO2 Mean Ox Delivery Rate 06/10 1501 98.1 86 20 154/86 95 Nasal 2.0L Cannula 06/10 1434 Nasal 3.0L Cannula 06/10 1344 94 Nasal 1.0L Cannula 06/10 0905 74 168/74 06/10 0800 97 Nasal 2.0L Cannula 06/10 0546 98.2 67 20 168/74 93 Nasal Cannula 06/10 0000 94 Nasal 2.0L Cannula 06/09 2214 97.9 80 20 122/80 94 Nasal 2.0L Cannula 06/09 2114 93 Nasal 2.0L Cannula 06/09 1600 94 Nasal 2.0L Cannula Intake & Output 06/10 1600 06/10 0800 06/10 0000 Intake Total 200 670 Output Total 2000 1100 Balance -1800 -430 Intake, IV 270 Intake, Oral 200 400 Output, Urine 1999 1100 Patient 48.648 kg Weight Physical Exam General Appearance: Alert, Oriented X3, Cooperative, No Acute Distress Neck: elevated JVD Cardiovascular: Normal S1, Normal S2 Lungs: bilateral decreased air entry, no crackles Abdomen: Soft, No Tenderness Extremities: No Clubbing, No Cyanosis, bilateral pitting edema on the legs Vascular: Normal Pulses, Pulses Symmetrical Assessment/Plan Assessment: Patient is a 77-year-old female, chronic smoker, resident of [place], presented with chief complaints of dyspnea on exertion, bilateral lower leg edema since couple of months. Patient was following at [facility]. She was having history of shortness of breath since last couple of months and was told to have echocardiogram which was done and 05/26/2017 which showed normal left ventricular systolic function with dilated right ventricle, decreased right ventricle function, severe TR, severe pul HTN with RVSP of 115. As her bilateral leg swelling has been increased. Her son convinced her to come to ED. ED course -vital signs at the time of presentation, temperature 97.5, pulse 99, respiratory rate 18, blood pressure 150/80, SPO2 82% on room air, 93% on 3 liters of nasal cannula. On Lung examination -bilateral crackles, extremities - bilateral lower leg edema. Blood workup showed hemoglobin 15.5, hematocrit 47.2, platelet count 433, serum sodium 148, potassium 3.2, BUN 24, creatinine 1.1, lactic acid 6.6, anion gap 19, calcium 8.9, albumin 3.7, alkaline phosphatase 137, proBNP 10,700. Her lactic acid was high, so she was given 2 liters of IV fluid and discontinued later on for possible volume overload. Patient was admitted into telemetry floor for further evaluation and treatment. Past medical history - COPD not on home oxygen Chronic smoker Hypertension History of CVA(2002) History of urinary incontinence Assessment and plan - Acute decompensated right-sided heart failure secondary to exacerbation of COPD and severe pulmonary hypertension - * We will continue oxygen to keep SPO2 more than 90% * Keep head end of the bed elevated * Daily weight measurement * Strict intake output charting * We will continue tab prednisone 40 mgs daily, with taper on every 2 days. * We will continue Tab Lasix 20mg BID * TRC/nebulization * We will continue tablet azithromycin 500 milligrams daily for total 5 days. * We will start her on Tab Aspirin as she had Hx of stroke. We later find out that she had hives in past so stopped again. Hypertension - * We will continue tab lisinopril 30 mgs daily Bladder incontinence - * We will continue tab Mirabegron 50mg Daily. CODE STATUS-DNR/DNI Diet-heart healthy diet with fluid restriction DVT prophylaxis-ALP S/heparin Problem List: 1. Pulmonary hypertension 2. Right-sided heart failure Pain Ratin Pain Location: n/a Pain Goal: Remain pain free Pain Plan: avoid NSAIDs Tomorrow's Labs & Rationales: CBC,BEP f/u DVT/Prophylaxis: mechanical, pharmacological Joselyn MITCHELL,Bricevanessa 06/10/17 1243: Attending MD Review Statement Attending Statement Attending MD Statement: examined this patient, discuss w/resident/PA/TELECASTING TECHNICIAN, agreed w/resident/PA/TELECASTING TECHNICIAN, reviewed EMR data (avail), discussed with nursing, discussed with case mgmt, amended to note Attending Assessment/Plan: Patient seen and examined. Overnight she reported complaint of chest pain. Cardiac enzymes were drawn around 5 AM. She complained of chest pain again after this. She describes the pain as heartburn. She denies any palpitations. She reports this is similar to her but she has had in the past. First troponin drawn today 0.1. Very mildly elevated from previous but still negative. EKG shows nonspecific T-wave changes. Symptoms are currently resolved. On examination she has good entry bilateral lungs clear to auscultation. Heart sounds are regular. Peripheral edema has improved compared to presentation. She is maintaining in negative fluid balance with diuretic therapy and has lost a total of 7 kg since admission. Recommendations: -Follow trend of cardiac enzymes today. -Continue diuresis with Lasix 20 g orally twice daily. -Continue bronchodilator therapy and systemic steroid therapy with prednisone taper. -Physical therapy service is deemed unsafe to be discharged home due to poor safety awareness even when using a walker. She is also newly on oxygen and was frequently getting her walker entangled in her incision line. Patient reports suboptimal social support at home at present. Patient is agreeable to going to a custodial facility for short-term rehabilitation. -Cardiology service or complaints but with primary suction drum drier operator as an outpatient for determination of timing of right and left heart catheterization.
--- NOTE | 2017-06-10 11:48 | PN- Pulmonary ---
Subjective HPI/Critical Care Issues: pt seen and examined desaturated on room air troponins noted awaiting cardiology input comfortable at rest Objective Current Medications: Current Medications Sig/Gila Start time Last Medication Dose Route Stop Time Status Admin Albuterol Sulfate 3 ML Q4P PRN 06/08 2215 AC INH Albuterol Sulfate 2 PUF Q4 06/08 0600 AC 06/10 INH 0902 Azithromycin 250 MG DAILY 06/10 1000 AC 06/10 PO 1052 Azithromycin 500 MG Q24H 06/08 2330 DC 06/09 Dextrose/Water 250 ML IV 2250 Diazepam 5 MG QPM 06/08 2200 AC 06/09 PO 2250 Enoxaparin Sodium 30 MG DAILY 06/08 1000 AC 06/10 SC 0902 Furosemide 40 MG DAILY 06/10 1000 CAN PO Furosemide 20 MG 7:30 AM, & 4:30 PM 06/08 1630 DC 06/09 IV 0832 Ipratropium [place] 2.5 ML Q4 HRS NEEDED PRN 06/08 0230 AC INH Lisinopril 30 MG DAILY 06/08 1000 AC 06/10 PO 0905 Magnesium Oxide 400 MG BID 06/10 1000 AC 06/10 PO 0901 Magnesium Sulfate 1 GM ONCE ONE 06/10 0815 AC 06/10 Dextrose/Water 100 ML IV 06/10 1214 1053 Mirabegron 50 MG DAILY 06/08 1000 AC 06/10 PO 0901 Potassium Chloride 40 MEQ BID 06/10 1000 AC 06/10 PO 0901 Prednisone 10 MG DAILY 06/16 1000 AC PO 06/17 1001 Prednisone 20 MG DAILY 06/14 1000 AC PO 06/15 1001 Prednisone 30 MG DAILY 06/12 1000 AC PO 06/13 1001 Prednisone 40 MG DAILY 06/10 1000 CAN PO 06/18 0959 Prednisone 40 MG DAILY 06/10 1000 AC 06/10 PO 06/11 1001 0901 Prednisone 40 MG DAILY 06/09 1000 DC 06/09 PO 0906 Vital Signs & I&O Last 24 Hrs of Vitals and I&O: Vital Signs Date Time Temp Pulse Resp B/P B/P Pulse O2 O2 Flow FiO2 Mean Ox Delivery Rate 06/10 0905 74 168/74 06/10 0800 97 Nasal 2.0L Cannula 06/10 0546 98.2 67 20 168/74 93 Nasal Cannula 06/10 0000 94 Nasal 2.0L Cannula 06/09 2214 97.9 80 20 122/80 94 Nasal 2.0L Cannula 06/09 2114 93 Nasal 2.0L Cannula 06/09 1600 94 Nasal 2.0L Cannula 06/09 1447 97.5 92 20 122/78 94 Nasal 2.0L Cannula 06/09 1428 97 Nasal 2.0L Cannula Intake & Output 06/10 1600 06/10 0800 06/10 0000 Intake Total 200 670 Output Total 2000 1100 Balance -1800 -430 Intake, IV 270 Intake, Oral 200 400 Output, Urine 1999 1100 Patient 107 lb Weight Exam Other Physical Findings: Generally - Awake, alert and comfortable without distress Head and neck - normocephalic, atraumatic, EOMI grossly intact Cardiovascular - S1, S2 Lungs - bilateral crackles Abdomen - Bowel sounds positive, soft, non-tender Extremities - bilater edema Results Last 24 Hrs of Lab Results: Laboratory Tests 06/10/17 0500: Troponin I 0.10 06/10/17 0500: Anion Gap 11, Estimated GFR > 60, BUN/Creatinine Ratio 25.0, Magnesium 1.5 L, Triglycerides 102, Cholesterol 146, LDL Cholesterol, Calc 73, HDL Cholesterol 53 , Cholesterol/HDL Ratio 3, CBC w Diff MAN DIFF ORDERED, RBC 4.64, MCV 90.8, MCH 29.5, RDW 15.6 H, MPV 7.1 L, Gran % 87.1 H, Lymphocytes % 9.7 L, Monocytes % 2.8, Eosinophils % 0, Basophils % 0.4, Absolute Granulocytes 11.3 H, Segmented Neutrophils 81 H, Band Neutrophils 1, Absolute Lymphocytes 1.3, Lymphocytes 10 L, Monocytes 8, Absolute Monocytes 0.4, Absolute Eosinophils 0, Absolute Basophils 0.1, Platelet Estimate ADEQUATE, Polychromasia 1+, Hypochromic- Microcytic 1+, Poikilocytosis 1+, Basophilic Stippling 1+, Ovalocytes 1+, PUBS MCHC 32.5 L, Fld Total RBCs Counted 100 Impression/Plan Impression/Plan Impression/Plan: Impression 77 year old woman * appears to be improved -decompensated CHF - severe pulmonary htn estimated on ECHO * likely underlying COPD - emphysema is evident on CT, the "ILD" reported is likely pulmonary vascular congestion Plan -f/u cardiology recs -TRC/Nebs -assess o2 requirements -daily weights, see need for diuresis per cardiology - d/w cardiology need for cath and if outpt vs inpt, if no acute procedures then rehab was recommended by PT -can cont symbicort, 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
--- NOTE | 2017-06-10 11:49 | PN- Cardiology ---
Subjective Subjective: The patient reports that she is feeling better today. She had a brief episode of burning in her chest lasting for yesterday 1 minute which was similar to her usual heartburn that is brought on by fatty foods. No other chest pain. Shortness of breath is much better. No palpitations. No diaphoresis. No nausea or vomiting. Objective Vital Signs and I&Os Vital Signs Date Time Temp Pulse Resp B/P B/P Pulse O2 O2 Flow FiO2 Mean Ox Delivery Rate 06/10 0905 74 168/74 06/10 0800 97 Nasal 2.0L Cannula 06/10 0546 98.2 67 20 168/74 93 Nasal Cannula 06/10 0000 94 Nasal 2.0L Cannula 06/09 2214 97.9 80 20 122/80 94 Nasal 2.0L Cannula 06/09 2114 93 Nasal 2.0L Cannula 06/09 1600 94 Nasal 2.0L Cannula 06/09 1447 97.5 92 20 122/78 94 Nasal 2.0L Cannula 06/09 1428 97 Nasal 2.0L Cannula Intake & Output 06/10 1600 06/10 0800 06/10 0000 06/09 1600 06/09 0800 06/09 0000 Intake Total 200 670 640 250 Output Total 2000 1100 2600 1000 500 Balance -1800 -430 -1960 -750 -500 Intake, IV 270 250 Intake, Oral 200 400 640 Output, Urine 2000 1100 2600 1000 500 Patient 107 lb 114 lb Weight Weight Bed scale Measurement Method Physical Exam: Gen: The patient is in no acute distress HEENT: Normal nose, ears, and oropharynx. Pupils equal bilaterally. Conjunctiva normal. Neck: Supple with no JVD, no masses, and no thyromegaly Lungs: Scattered rales bilaterally with normal respiratory effort Heart: RRR, S1, S2, 1/6 systolic murmur. 1+ peripheral edema, 2+ pulses in the lower extremities bilaterally Abdomen: Soft, nontender, no masses. No hepatomegaly. No splenomegaly Extremities: No clubbing or cyanosis. Normal muscle strength in the upper and lower extremities Skin: Normal skin turgor with no skin ulcers or lesions noted. Current Medications: Current Medications Sig/Gila Start time Last Medication Dose Route Stop Time Status Admin Albuterol Sulfate 3 ML Q4P PRN 06/08 2214 AC INH Albuterol Sulfate 2 PUF Q4 06/08 06 AC 01/11 INH 0902 Azithromycin 250 MG DAILY 06/10 1000 AC 06/10 PO 1052 Azithromycin 500 MG Q24H 06/08 2330 DC 06/09 Dextrose/Water 250 ML IV 2250 Diazepam 5 MG QPM 06/08 2200 AC 06/09 PO 2250 Enoxaparin Sodium 30 MG DAILY 06/08 1000 AC 06/10 SC 0902 Furosemide 40 MG DAILY 06/10 1000 CAN PO Furosemide 20 MG 7:30 AM, & 4:30 PM 06/08 1630 DC 06/09 IV 0832 Ipratropium [place] 2.5 ML Q4 HRS NEEDED PRN 06/08 0230 AC INH Lisinopril 30 MG DAILY 06/08 1000 AC 06/10 PO 0905 Magnesium Oxide 400 MG BID 06/10 1000 AC 06/10 PO 0901 Magnesium Sulfate 1 GM ONCE ONE 06/10 0815 AC 06/10 Dextrose/Water 100 ML IV 06/10 1214 1053 Mirabegron 50 MG DAILY 06/08 1000 AC 06/10 PO 0901 Potassium Chloride 40 MEQ BID 06/10 1000 AC 06/10 PO 0901 Prednisone 10 MG DAILY 06/16 1000 AC PO 06/17 1001 Prednisone 20 MG DAILY 06/14 1000 AC PO 06/15 1001 Prednisone 30 MG DAILY 06/12 1000 AC PO 06/13 1001 Prednisone 40 MG DAILY 06/10 1000 CAN PO 06/18 0959 Prednisone 40 MG DAILY 06/10 1000 AC 06/10 PO 06/11 1001 0901 Prednisone 40 MG DAILY 06/09 1000 DC 06/09 PO 0906 Results Last 48 Hrs of Labs/Mics: Laboratory Tests 06/10/17 0500: Troponin I 0.10 06/10/17 0500: Anion Gap 11, Estimated GFR > 60, BUN/Creatinine Ratio 25.0, Magnesium 1.5 L, Triglycerides 102, Cholesterol 146, LDL Cholesterol, Calc 73, HDL Cholesterol 53 , Cholesterol/HDL Ratio 3, CBC w Diff MAN DIFF ORDERED, RBC 4.64, MCV 90.8, MCH 29.5, RDW 15.6 H, MPV 7.1 L, Gran % 87.1 H, Lymphocytes % 9.7 L, Monocytes % 2.8, Eosinophils % 0, Basophils % 0.4, Absolute Granulocytes 11.3 H, Segmented Neutrophils 81 H, Band Neutrophils 1, Absolute Lymphocytes 1.3, Lymphocytes 10 L, Monocytes 8, Absolute Monocytes 0.4, Absolute Eosinophils 0, Absolute Basophils 0.1, Platelet Estimate ADEQUATE, Polychromasia 1+, Hypochromic- Microcytic 1+, Poikilocytosis 1+, Basophilic Stippling 1+, Ovalocytes 1+, PUBS MCHC 32.5 L, Fld Total RBCs Counted 100 06/09/17 0645: Anion Gap 13, Estimated GFR > 60, BUN/Creatinine Ratio 22.5, CBC w Diff NO MAN DIFF REQ, RBC 4.11 L, MCV 91.1, MCH 29.5, RDW 15.4 H, MPV 7.2 L, Gran % 93.8 H, Lymphocytes % 3.8 L, Monocytes % 2.4, Eosinophils % 0, Basophils % 0, Absolute Granulocytes 11.7 H, Absolute Lymphocytes 0.5 L, Absolute Monocytes 0.3, Absolute Eosinophils 0, Absolute Basophils 0, PUBS MCHC 32.5 L 06/08/17 1859: Anion Gap 15, Estimated GFR > 60, BUN/Creatinine Ratio 22.2 Recent Imaging Studies: Chest x-ray: Emphysema and interstitial disease. Bilateral pleural effusions are stable on the right and slightly increased on the left, but both are considered small in volume. Focal airspace opacity in the right upper lateral chest is unchanged. EKG tracing is reviewed, and reveals normal sinus rhythm at 62, left atrial abnormality, left hypertrophy, T wave abnormality Assessment/Plan Assessment/Plan Assessment: 1. Worsening dyspnea, likely secondary to COPD, pulmonary hypertension, and heart failure with preserved ejection fraction 2. Cor pulmonale and severe pulmonary hypertension by recent echocardiogram with an RV systolic pressure of greater than 100 mmHg and severe tricuspid insufficiency 3. Bilateral pleural effusions 4. COPD 5. Elevated proBNP 6. History of hypertension 7. History of prior stroke Recommendations: * Lasix 20 mg by mouth twice a day * Supplement potassium to greater than 4.0 * Monitor input and output with daily weights * Out of bed and ambulate with monitoring of oxygen saturations, etc. * Follow up with Dr. Trammell after discharge * Possible right heart cath +/- left heart cath in the future depending on clinical course Continue telemetry? Yes
--- NOTE | 2017-06-10 13:54 | Patient Discharge Instructions ---
Discharge Instructions General Discharge Information You were seen/treated for: You were seen here for gradually progressive shortness of breath.You wrer found to have right-sided heart failure secondary to severe pulmonary hypertension. Special Instructions: Please follow-up with your coat repair inspector at the [facility] for further management and discussed about right-sided heart catheterization on 06/15/2017 - 06/16/2017. Advised to take an appointment with the PCP for further follow-up. Advised to take the steroid as prescribed and follow-up with communications engineering technician for further decision of continuing or stopping the steroid medication. Diet Recommended Diet: Heart Healthy Acute Coronary Syndrome Inclusion Criteria At DC or during hospital stay patient has or had the following: ACS DIAGNOSIS No Discharge Core Measures Meds if any: Prescribed or Continued at Discharge Meds if any: NOT Prescribed or Continued at Discharge Congestive Heart Failure Inclusion Criteria At DC or during hospital stay patient has or had the following: CHF DIAGNOSIS No Discharge Core Measures Meds if any: Prescribed or Continued at Discharge Meds if any: NOT Prescribed or Continued at Discharge Cerebrovascular accident Inclusion Criteria At DC or during hospital stay patient has or had the following: CVA/TIA Diagnosis No Discharge Core Measures Meds if any: Prescribed or Continued at Discharge Meds if any: NOT Prescribed or Continued at Discharge Venous thromboembolism Inclusion Criteria VTE Diagnosis No VTE Type NONE VTE Confirmed by (Test) NONE Discharge Core Measures - Per Current guidelines, there needs to be overlap - treatment for the first 5 days of Warfarin therapy. - If discharged on Warfarin prior to 5 days of - overlap therapy, the patient will need to be - assessed for post discharge needs including - *Post discharge parental anticoagulation - *Warfarin and/or parental anticoagulation education - *Follow up date to check INR post discharge At least 5 days overlap therapy as Inpatient No Meds if any: Prescribed or Continued at Discharge Note: Overlap Therapy is Warfarin and Anticoagulant Meds if any: NOT Prescribed or Continued at Discharge
[2017-06-10 15:01] VITALS: BP 154/86
[2017-06-10 23:11] VITALS: BP 140/60
[2017-06-11 06:00] VITALS: BP 158/88
--- NOTE | 2017-06-11 06:38 | PN- Housestaff ---
See Addendum Subjective Follow-up For: f/u RHF,Pul HTN COPD exacerbation Complaints: no complaints Tele-Events Since Last Visit: NSR, Review of Systems Constitutional: Reports: weakness. Objective Last 24 Hrs of Vital Signs/I&O Vital Signs Date Time Temp Pulse Resp B/P B/P Pulse O2 O2 Flow FiO2 Mean Ox Delivery Rate 06/11 0000 Nasal 2.0L Cannula 06/10 2311 97.7 76 20 140/60 92 Nasal 2.0L Cannula 06/10 1501 98.1 86 20 154/86 95 Nasal 2.0L Cannula 06/10 1434 Nasal 3.0L Cannula 06/10 1344 94 Nasal 1.0L Cannula 06/10 0905 74 168/74 06/10 08 97 Nasal 2.0L Cannula Intake & Output 06/11 0800 06/11 0000 06/10 1600 Intake Total 550 Output Total 900 1600 1200 Balance -900 -1600 -650 Intake, IV 100 Intake, Oral 450 Output, Urine 900 1600 1200 Physical Exam General Appearance: Alert, Oriented X3, Cooperative, No Acute Distress Cardiovascular: Normal S1, Normal S2 Lungs: Clear to Auscultation, Normal Air Movement Abdomen: Soft, No Tenderness Extremities: No Clubbing, No Cyanosis, mild edema Vascular: Normal Pulses, Pulses Symmetrical Current Medications: Current Medications Sig/Gila Start time Last Medication Dose Route Stop Time Status Admin Albuterol Sulfate 3 ML Q4P PRN 06/08 2215 AC INH Albuterol Sulfate 2 PUF Q4 06/08 0600 AC 06/11 INH 0604 Aspirin 81 MG DAILY 06/10 1400 DC PO Azithromycin 250 MG DAILY 06/10 1000 AC 06/10 PO 06/11 1200 1052 Azithromycin 500 MG Q24H 06/08 2330 DC 06/09 Dextrose/Water 250 ML IV 2250 Diazepam 5 MG QPM 06/08 2200 AC 06/10 PO 2216 Enoxaparin Sodium 30 MG DAILY 06/08 1000 AC 06/10 SC 0902 Furosemide 20 MG 7:30 AM, & 4:30 PM 06/10 1630 AC 06/10 IV 1610 Furosemide 40 MG DAILY 06/10 1000 CAN PO Ipratropium [place] 2.5 ML Q4 HRS NEEDED PRN 06/08 0230 AC INH Lisinopril 30 MG DAILY 06/08 1000 AC 06/10 PO 0905 Magnesium Oxide 400 MG BID 06/10 1000 AC 06/10 PO 2216 Magnesium Sulfate 1 GM ONCE ONE 06/10 0815 DC 06/10 Dextrose/Water 100 ML IV 06/10 1214 1053 Mirabegron 50 MG DAILY 06/08 1000 AC 06/10 PO 0901 Omeprazole 40 MG DAILY AC 06/10 1400 AC 06/11 PO 0604 Potassium Chloride 40 MEQ BID 06/10 1000 AC 06/10 PO 2215 Prednisone 10 MG DAILY 06/16 1000 AC PO 06/17 1001 Prednisone 20 MG DAILY 06/14 1000 AC PO 06/15 1001 Prednisone 30 MG DAILY 06/12 1000 AC PO 06/13 1001 Prednisone 40 MG DAILY 06/10 1000 AC 06/10 PO 06/11 1001 0901 Last 24 Hrs of Lab/Obdulio Results Last 24 Hrs of Labs/Mics: Laboratory Tests 06/10/17 2239: Troponin I 0.06 06/10/17 1600: Troponin I Cancelled 06/10/17 1445: Troponin I 0.07 Assessment/Plan Assessment: Patient is a 77-year-old female, chronic smoker, resident of [place], presented with chief complaints of dyspnea on exertion, bilateral lower leg edema since couple of months. Patient was following at [facility]. She was having history of shortness of breath since last couple of months and was told to have echocardiogram which was done and 05/26/2017 which showed normal left ventricular systolic function with dilated right ventricle, decreased right ventricle function, severe TR, severe pul HTN with RVSP of 115. As her bilateral leg swelling has been increased. Her son convinced her to come to ED. ED course -vital signs at the time of presentation, temperature 97.5, pulse 99, respiratory rate 18, blood pressure 150/80, SPO2 82% on room air, 93% on 3 liters of nasal cannula. On Lung examination -bilateral crackles, extremities - bilateral lower leg edema. Blood workup showed hemoglobin 15.5, hematocrit 47.2, platelet count 433, serum sodium 148, potassium 3.2, BUN 24, creatinine 1.1, lactic acid 6.6, anion gap 19, calcium 8.9, albumin 3.7, alkaline phosphatase 137, proBNP 10,700. Her lactic acid was high, so she was given 2 liters of IV fluid and discontinued later on for possible volume overload. Patient was admitted into telemetry floor for further evaluation and treatment. Past medical history - COPD not on home oxygen Chronic smoker Hypertension History of CVA(2002) History of urinary incontinence Assessment and plan - Discharge today Converted all IV to Oral medication Discharged on 2L of oxygen and saturating 94%. Acute decompensated right-sided heart failure secondary to exacerbation of COPD and severe pulmonary hypertension - * We continued tab prednisone 30 mgs daily, with taper on every 2 days. * We continued Tab Lasix 20mg OD * TRC/nebulization * Completed course of Azithromycin * Didnt started Aspirin due to hx of hives. Hypertension - * We continued tab lisinopril 30 mgs daily Bladder incontinence - * We continued tab Mirabegron 50mg Daily. CODE STATUS-DNR/DNI Diet-heart healthy diet with fluid restriction DVT prophylaxis-ALP S/heparin Problem List: 1. Right heart failure 2. Pulmonary hypertension 3. COPD exacerbation Pain Ratin Pain Location: n/a Pain Goal: Remain pain free Pain Plan: avoid NSAIDs Tomorrow's Labs & Rationales: BEP for f/u DVT/Prophylaxis: mechanical, pharmacological
[2017-06-11] MEDS ORDERED: MAGNESIUM OXID400 M1 PO ×2 (07:44→09:23)
[2017-06-11] MEDS ORDERED: PREDNISONE10 M2 PO (07:44)
[2017-06-11] MEDS ORDERED: LASIX20 M1 PO (07:44)
[2017-06-11] MEDS ORDERED: OMEPRAZOLE20 M2 PO (07:44)
[2017-06-11] MEDS ORDERED: SYMBICORT 16010.2 GM INH (07:49)
[2017-06-11] MEDS ORDERED: POTASSIUM CHLO10 ME4 PO (07:52)
[2017-06-11 08:13] LABS: ABSOLUTE BASOPHIL COUNT 0.1 /CUMM (0.0-0.2); ABSOLUTE EOSINOPHIL COUNT 0 /CUMM (0.0-0.7); ABSOLUTE GRANULOCYTE CT 9.3 /CUMM (1.4-6.5); ABSOLUTE LYMPH COUNT 1.4 /CUMM (1.2-3.4); ABSOLUTE MONOCYTE COUNT 0.8 /CUMM (0.10-0.60); EOSINOPHIL % 0.1 % (0-5); GRANULOCYTE % 80.4 % (42.2-75.2); HEMATOCRIT 42.1 % (37-47); MEAN CORPUSCULAR HGB 29.8 PG (27.0-31.0); MEAN CORPUSCULAR HGB CONC 32.8 G/DL (33.0-37.0); MEAN CORPUSCULAR VOLUME 90.8 FL (81.0-99.0); MEAN PLATELET VOLUME 7.3 FL (7.4-10.4); PLATELET COUNT 345 /CUMM (130-400); RBC DISTRIBUTION WIDTH 15.3 % (11.5-14.5); RED BLOOD CELL CT 4.64 /CUMM (4.20-5.40); WHITE BLOOD CELL COUNT 11.6 /CUMM (4.8-10.8)
[2017-06-11 08:35] VITALS: BP 158/88
--- NOTE | 2017-06-11 11:34 | PN- Pulmonary ---
Subjective HPI/Critical Care Issues: pt seen and examined feeling better anticipating dc Objective Current Medications: Current Medications Sig/Gila Start time Last Medication Dose Route Stop Time Status Admin Albuterol Sulfate 3 ML Q4P PRN 06/08 2215 AC INH Albuterol Sulfate 2 PUF Q4 06/08 0600 AC 06/11 INH 0836 Aspirin 81 MG DAILY 06/10 1400 DC PO Azithromycin 250 MG DAILY 06/10 1000 AC 06/11 PO 06/11 1200 0835 Diazepam 5 MG QPM 06/08 2200 AC 06/10 PO 2216 Enoxaparin Sodium 30 MG DAILY 06/08 1000 AC 06/11 SC 0836 Furosemide 20 MG 7:30 AM, & 4:30 PM 06/11 0730 AC 06/11 PO 0836 Furosemide 20 MG 7:30 AM, & 4:30 PM 06/10 1630 DC 06/10 IV 1610 Ipratropium [place] 2.5 ML Q4 HRS NEEDED PRN 06/08 0230 AC INH Lisinopril 30 MG DAILY 06/08 1000 AC 06/11 PO 0835 Magnesium Oxide 400 MG BID 06/10 1000 AC 06/11 PO 0836 Magnesium Sulfate 1 GM ONCE ONE 06/10 0815 DC 06/10 Dextrose/Water 100 ML IV 06/10 1214 1053 Mirabegron 50 MG DAILY 06/08 1000 AC 06/11 PO 0836 Omeprazole 40 MG DAILY AC 06/10 1400 AC 06/11 PO 0604 Potassium Chloride 40 MEQ BID 06/10 1000 AC 06/11 PO 0836 Prednisone 10 MG DAILY 06/16 1000 AC PO 06/17 1001 Prednisone 20 MG DAILY 06/14 1000 AC PO 06/15 1001 Prednisone 30 MG DAILY 06/12 1000 AC PO 06/13 1001 Prednisone 40 MG DAILY 06/10 1000 DC 06/11 PO 06/11 1001 0835 Vital Signs & I&O Last 24 Hrs of Vitals and I&O: Vital Signs Date Time Temp Pulse Resp B/P B/P Pulse O2 O2 Flow FiO2 Mean Ox Delivery Rate 06/11 08 88 158/88 06/11 0800 96 Nasal 2.0L Cannula 06/11 599 98.1 80 20 158/88 93 06/11 0000 Nasal 2.0L Cannula 06/10 2311 97.7 76 20 140/60 92 Nasal 2.0L Cannula 06/10 1501 98.1 86 20 154/86 95 Nasal 2.0L Cannula 06/10 1434 Nasal 3.0L Cannula 06/10 1344 94 Nasal 1.0L Cannula Intake & Output 06/11 1600 06/11 0800 06/11 0000 Intake Total Output Total 900 1600 Balance -900 -1600 Output, Urine 900 1600 Patient 105 lb Weight Weight Bed scale Measurement Method Exam Other Physical Findings: Generally - Awake, alert and comfortable without distress Head and neck - normocephalic, atraumatic, EOMI grossly intact Cardiovascular - S1, S2 Lungs - bilateral crackles Abdomen - Bowel sounds positive, soft, non-tender Extremities - bilater edema Results Last 24 Hrs of Lab Results: Laboratory Tests 06/11/17 0652: Anion Gap 10, Estimated GFR > 60, BUN/Creatinine Ratio 31.3 H, Magnesium 1.8, CBC w Diff NO MAN DIFF REQ, RBC 4.64, MCV 90.8, MCH 29.8, RDW 15.3 H, MPV 7.3 L, Gran % 80.4 H, Lymphocytes % 11.6 L, Monocytes % 6.9, Eosinophils % 0.1, Basophils % 1.0, Absolute Granulocytes 9.3 H, Absolute Lymphocytes 1.4, Absolute Monocytes 0.8 H, Absolute Eosinophils 0, Absolute Basophils 0.1, PUBS MCHC 32.8 L 06/10/17 2239: Troponin I 0.06 06/10/17 1600: Troponin I Cancelled 06/10/17 1445: Troponin I 0.07 Impression/Plan Impression/Plan Impression/Plan: Impression 77 year old woman * improved -decompensated CHF - severe pulmonary htn estimated on ECHO * likely underlying COPD - emphysema is evident on CT, the "ILD" reported is likely pulmonary vascular congestion Plan -f/u cardiology recs -TRC/Nebs -qualified for o2 -can cont symbicort, 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
--- NOTE | 2017-06-11 13:19 | PN- Cardiology ---
Objective Vital Signs and I&Os Vital Signs Date Time Temp Pulse Resp B/P B/P Pulse O2 O2 Flow FiO2 Mean Ox Delivery Rate 06/11 0835 88 158/88 06/11 0800 96 Nasal 2.0L Cannula 06/11 0600 98.1 80 20 158/88 93 06/11 0000 Nasal 2.0L Cannula 06/10 2311 97.7 76 20 140/60 92 Nasal 2.0L Cannula 06/10 1501 98.1 86 20 154/86 95 Nasal 2.0L Cannula 06/10 1434 Nasal 3.0L Cannula 06/10 1344 94 Nasal 1.0L Cannula Intake & Output 06/11 1600 06/11 0800 06/11 0000 06/10 1600 06/10 0800 06/10 0000 Intake Total 550 200 670 Output Total 900 1600 1200 2000 1100 Balance -900 -1600 -650 -1800 -430 Intake, IV 100 270 Intake, Oral 450 200 400 Output, Urine 900 1600 1200 2000 1100 Patient 105 lb 107 lb Weight Weight Bed scale Measurement Method Current Medications: Current Medications Sig/Gila Start time Last Medication Dose Route Stop Time Status Admin Albuterol Sulfate 3 ML Q4P PRN 06/08 221 DCD INH Albuterol Sulfate 2 PUF Q4 06/08 06 DCD 06/11 INH 0836 Aspirin 81 MG DAILY 06/10 1400 DC PO Azithromycin 250 MG DAILY 06/10 1000 DC 06/11 PO 06/11 1200 0835 Diazepam 5 MG QPM 06/08 2200 DCD 06/10 PO 2216 Enoxaparin Sodium 30 MG DAILY 06/08 1000 DCD 06/11 SC 0836 Furosemide 20 MG 7:30 AM, & 4:30 PM 06/11 0730 DCD 06/11 PO 0836 Furosemide 20 MG 7:30 AM, & 4:30 PM 06/10 1630 DC 06/10 IV 1610 Ipratropium [place] 2.5 ML Q4 HRS NEEDED PRN 06/08 0230 DCD INH Lisinopril 30 MG DAILY 06/08 1000 DCD 06/11 PO 0835 Magnesium Oxide 400 MG BID 06/10 1000 DCD 06/11 PO 0836 Mirabegron 50 MG DAILY 06/08 1000 DCD 06/11 PO 0836 Omeprazole 40 MG DAILY AC 06/10 1400 DCD 06/11 PO 0604 Potassium Chloride 40 MEQ BID 01/11 1000 DCD 06/11 PO 0836 Prednisone 10 MG DAILY 06/16 1000 DCD PO 06/17 1001 Prednisone 20 MG DAILY 06/14 1000 DCD PO 06/15 1001 Prednisone 30 MG DAILY 06/12 1000 DCD PO 06/13 1001 Prednisone 40 MG DAILY 06/10 1000 DC 06/11 PO 06/11 1001 0835 Results Last 48 Hrs of Labs/Mics: Laboratory Tests 06/11/17 0652: Anion Gap 10, Estimated GFR > 60, BUN/Creatinine Ratio 31.3 H, Magnesium 1.8, CBC w Diff NO MAN DIFF REQ, RBC 4.64, MCV 90.8, MCH 29.8, RDW 15.3 H, MPV 7.3 L, Gran % 80.4 H, Lymphocytes % 11.6 L, Monocytes % 6.9, Eosinophils % 0.1, Basophils % 1.0, Absolute Granulocytes 9.3 H, Absolute Lymphocytes 1.4, Absolute Monocytes 0.8 H, Absolute Eosinophils 0, Absolute Basophils 0.1, PUBS MCHC 32.8 L 06/10/17 2239: Troponin I 0.06 06/10/17 1600: Troponin I Cancelled 06/10/17 1445: Troponin I 0.07 06/10/17 0500: Troponin I 0.10 06/10/17 0500: Anion Gap 11, Estimated GFR > 60, BUN/Creatinine Ratio 25.0, Magnesium 1.5 L, Triglycerides 102, Cholesterol 146, LDL Cholesterol, Calc 73, HDL Cholesterol 53 , Cholesterol/HDL Ratio 3, CBC w Diff MAN DIFF ORDERED, RBC 4.64, MCV 90.8, MCH 29.5, RDW 15.6 H, MPV 7.1 L, Gran % 87.1 H, Lymphocytes % 9.7 L, Monocytes % 2.8, Eosinophils % 0, Basophils % 0.4, Absolute Granulocytes 11.3 H, Segmented Neutrophils 81 H, Band Neutrophils 1, Absolute Lymphocytes 1.3, Lymphocytes 10 L, Monocytes 8, Absolute Monocytes 0.4, Absolute Eosinophils 0, Absolute Basophils 0.1, Platelet Estimate ADEQUATE, Polychromasia 1+, Hypochromic- Microcytic 1+, Poikilocytosis 1+, Basophilic Stippling 1+, Ovalocytes 1+, PUBS MCHC 32.5 L, Fld Total RBCs Counted 100 Assessment/Plan Assessment/Plan Assessment: 1. Worsening dyspnea 2. Cor pulmonale and severe pulmonary hypertension by recent echocardiogram with an RV systolic pressure of greater than 100 mmHg and severe tricuspid insufficiency 3. Bilateral pleural effusions 4. COPD 5. Elevated proBNP 6. History of hypertension 7. History of prior stroke Recommendations: -Continue diuresis as outlined. Continue to monitor her intakes, outputs, and daily weights. -Follow-up labs noted -Continue current recommendations for pulmonary treatment as per Dr. Rosales -Out of bed and ambulate with monitoring of oxygen saturations, etc. -Follow up with Dr. Trammell after discharge -Possible right heart cath +/- left heart cath in the future depending on clinical course; to be arranged as outpatient
== END 2017-06-11 12:40 | DRG 314 ==
LOC: ERH 20:18 → 1NO 23:35 → ERHI 23:35 → ENRESERV 06-08 13:01 → ENTRNSPT 06-08 14:05 → EDTRNSPT 06-08 14:11 → EDTRNSPTSTS 06-08 14:11 → CMPTRNSPT 06-08 14:41 → 1NO 06-08 14:42
PROVIDERS: Internal Medicine Adolescent Medicine; Physician Assistant Medical; Student in an Organized Health Care Education/Training Program
DX: I27.29 Other secondary pulmonary hypertension (principal); J96.01 Acute respiratory failure with hypoxia; I50.31 Acute diastolic (congestive) heart failure; E87.2 Acidosis; F13.20 Sedative, hypnotic or anxiolytic dependence, uncomplicated; I36.1 Nonrheumatic tricuspid (valve) insufficiency; J44.1 Chronic obstructive pulmonary disease with (acute) exacerbation; I11.0 Hypertensive heart disease with heart failure; E86.0 Dehydration; F17.210 Nicotine dependence, cigarettes, uncomplicated; T42.4X5A Adverse effect of benzodiazepines, initial encounter; K21.9 Gastro-esophageal reflux disease without esophagitis; N32.81 Overactive bladder; F41.9 Anxiety disorder, unspecified
CPT/HCPCS: 1NP; ERO; 36415; 71046; 81001; 82436; 87040; 87086; 93005; 93010; 96365; 96375; 97116-GO; 97161-GP; 97530-GO; 99291; J0456; J1650; J1940; J2920; J2930; J3490; J7040; J7060; J7512